=== PATIENT | male | born 1930 | race Caucasian/White ===

== ENCOUNTER → 2017-01-14 | Outpatient (CLI) | payer OTHER, BC ==
[~2017-01-14] MED LIST: ASPIRIN EC81 M1 PO; PRILOSEC40 MG PO; ROVIN-CF OF TA1 EACH PO; TYLENOL325 MG PO; XALATAN2.5 ML OPHTHALMIC; ZOCOR 20 MG TAB20 M1 PO
== END ==
LOC: MRI 13:46
DX: M47.896 Other spondylosis, lumbar region (principal); M51.36 Other intervertebral disc degeneration, lumbar region; M54.16 Radiculopathy, lumbar region

== ENCOUNTER → 2017-02-14 | Outpatient (CLI) | payer OTHER, BC ==
[~2017-02-14] VITALS: Ht 180.3 cm; Wt 70.3 kg
[~2017-02-14] MED LIST changes: +ALEVE220 MG PO; +ARNICA GEL; +LINZESS145 MCG PO; +NORCO 10-325 T1 EACH PO
--- NOTE | ~2017-02-14 | HPC ---
[facility] [place] [address] PAIN MANAGEMENT CONSULTATION Name: KELSEY ROYAL JR Room #: REG [facility].#: [id number] Admission: 02/14/17 Attend Phys: Bello Desir MD Discharge: Date of : 32 Report #: [id number] THIS REPORT FOR: //name// CC: Wade Desir DATE OF SERVICE: 02/14/2017 CHIEF COMPLAINT: Right leg pain. HISTORY OF PRESENT ILLNESS: I am seeing the patient who comes to the clinic today with a diagnosis of lumbar radiculopathy. He began experiencing pain in his leg with radiation through the lateral aspect as far as the calf and foot. He was treated conservatively with some exercise and pain medication and then an MRI was performed. The MRI demonstrated 2 levels of fairly significant pathology with correlation with his symptoms. There was lateral recess narrowing on the right at L3-L4 as well as bilateral neural foraminal narrowing on the right at L4-L5. In addition, asymmetrical bulging of the disk was noted at L2-L3; however, this was to the left, with the small possible extrusion. He was sent to us for a lumbar epidural steroid injection trial. His has been treated successfully in our clinic in the past. I am familiar with the patient from those appointments. MEDICATIONS: Omeprazole, Aleve, hydrocodone 10/325, Biotin, Linzess, aspirin, B12, simvastatin, Toprol and Arnicare gel. ALLERGIES: PENICILLIN. PAST MEDICAL HISTORY: Hypertension. PAST SURGICAL HISTORY: Appendectomy in 1960, cholecystectomy in 2006 and rotator cuff repair in 2002. Denies cardiac or pulmonary disease. REVIEW OF SYSTEMS: Completed by the patient, describes decreased appetite, fatigue, weakness, constipation, nocturia, numbness and tingling. SOCIAL HISTORY: . His is here, she is supportive. She has her own set of health issues. He has been retired for over 28 years. He denies the use of tobacco, drinks alcohol, a couple of drinks per evening. PHYSICAL EXAMINATION: GENERAL: This is a pleasant 86-year-old, alert and oriented, without signs of overmedication or anxiety or depression. MUSCULOSKELETAL: Moves easily from sitting to standing position, but walks with [facility] [address] [place] [address] PAIN MANAGEMENT CONSULTATION Name: KELSEY ROYAL Room #: [facility].#: [id number] Admission: 02/14/17 Attend Phys: Bello Desir MD Discharge: Date of : 32 Report #: [id number] a measured gait, slow and steady. He is able to turn. He does not appear to be a fall risk. CHEST: Clear. CARDIAC: Rhythm is regular, with a slow heart rate. ABDOMEN: Scaphoid. BACK: Mildly tender. EXTREMITIES: He has decreased range of motion in flexion and extension. Flexion reproduces more back and leg pain than extension does. Straight leg raising is positive on the right, reproducing an L4 distribution pain. IMPRESSION: Lumbar radiculopathy related to multilevel degenerative disk disease with symptomatic L4-L5 radiculopathy. RECOMMENDATIONS: Lumbar epidural steroid injection. I have chosen the most significant level to inject today to the right of midline and I have also tried to cover his many dermatomes as possible. Risks and benefits of the procedure was explained to the patient and he was anxious to proceed. PROCEDURE: Epidural steroid injection with fluoroscopic guidance. DESCRIPTION OF PROCEDURE: He was taken to the fluoroscopic suite and placed prone. Skin prepped with ChloraPrep. Skin anesthetized over the L3-L4 interspace and a 20-gauge Tuohy epidural needle advanced into the epidural space into the right of midline. A 1 mL of Omnipaque injected. Good spread of dye observed into the lateral recess on the right. It was then followed by 4 mL of 0.5% lidocaine mixed with 80 mg triamcinolone. He tolerated the procedure well and was taken to the recovery room for observation. I will see him back in 1 month. He has asked that his medication for pain can be prescribed through our clinic. He has been getting it monthly from Dr. Albarran's office and this is quite a drive for them from [place]. Our office is about 30 minutes closer and he also can be seen at the same time as his . I have agreed to do so under terms of an opioid agreement. This is notification to Dr. Albarran that we would be assuming the prescribing of his pain medication opioid hydrocodone 10/. We reviewed the risks and benefits of these medicines and side effects, particularly constipation, which seems to already be troubling him. He will initiate an opioid agreement with us today. By: [id number] Bello Desir MD /nt
[2017-02-14 12:46] VITALS: BP 160/58
== END | disposition home or self-care (01) ==
LOC: PAIN 06:54
DX: M51.36 Other intervertebral disc degeneration, lumbar region (principal); M54.16 Radiculopathy, lumbar region; I10 Essential (primary) hypertension; Z88.0 Allergy status to penicillin; Z90.49 Acquired absence of other specified parts of digestive tract; Z98.890 Other specified postprocedural states; Z79.82 Long term (current) use of aspirin; Z79.899 Other long term (current) drug therapy

== ENCOUNTER → 2017-03-14 | Outpatient (CLI) | payer OTHER, BC ==
--- NOTE | ~2017-03-14 | HPC ---
[facility] [place] [address] PAIN MANAGEMENT CONSULTATION Name: KELSEY ROYAL JR Room #: REG [facility].#: [id number] Admission: 03/14/17 Attend Phys: Bello Desir MD Discharge: Date of : 32 Report #: [id number] THIS REPORT FOR: //name// CC: Wade Desir DATE OF SERVICE: 03/14/2017 Followup visit for lumbar radiculopathy. The patient has had a good response with about 60-70% response from his first epidural injection. Pain score is down to 3-4. Still has some pain in his left hip and in his right hip and leg, but the more distal radicular symptoms are improved. He has been using hydrocodone as needed, but has reduced his reliance on that medication. He has fewer side effects off medication, so we will continue to try and limit his use of opioid medication with another injection today. PHYSICAL EXAMINATION: Blood pressure is 145/68, heart rate 75, respirations are 16 and his pain score is 3-4 ____ moves to standing position, walks with antalgic features. He has positive straight leg raising on the right. Internal and external rotation of the right hip is performed without significant pain, although there are some slight restrictions in lateral rotation. IMPRESSION: Lumbar spondylosis and spinal stenosis resulting in lumbar radiculopathy. PROCEDURE: Lumbar epidural steroid injection to the right of midline at L3-L4 under fluoroscopic guidance. PROCEDURE NOTE: He was taken to the fluoroscopic suite for treatment, placed prone, skin prepped with ChloraPrep. Skin was anesthetized over the L3-L4 interspace. A 20-gauge Tuohy epidural needle advanced in the epidural space with loss of resistance. There was no blood or CSF aspirated. 1 mL of Omnipaque injected. Spread of dye observed into the epidural space. It was followed by 3 mL of 0.5% lidocaine mixed with ____ 80 mg of triamcinolone. He tolerated the procedure well. He was observed for 45 minutes and discharged. Followup visit planned as needed. By: [id number] Bello Desir MD /nt
== END | disposition home or self-care (01) ==
LOC: PAIN 07:05
DX: M47.896 Other spondylosis, lumbar region (principal); M48.06 Spinal stenosis, lumbar region; Z79.891 Long term (current) use of opiate analgesic; Z88.0 Allergy status to penicillin; Z79.82 Long term (current) use of aspirin; Z79.899 Other long term (current) drug therapy; Z98.890 Other specified postprocedural states

== ENCOUNTER → 2017-08-08 | Outpatient (CLI) | payer OTHER, BC ==
[~2017-08-08] VITALS: Ht 180.3 cm; Wt 71.7 kg
[~2017-08-08] MED LIST changes: +HYDROCODON-ACE1 EAC5 PO; +LOPRESSOR25 PO; +PRILOSEC 20 MG20 MG PO; -PRILOSEC40 MG PO; +VITAMIN B-12500 MCG PO
--- NOTE | ~2017-08-08 | HPC ---
[facility] [address] [address] [place] [address] PAIN MANAGEMENT CONSULTATION Name: KELSEY ROYAL JR Room #: REG [facility] Brijesh.#: [id number] Admission: 08/08/17 Attend Phys: Bello Desir MD Discharge: Date of : 32 Report #: [id number] THIS REPORT FOR: //name// CC: Wade Desir DATE OF SERVICE: 08/08/2017 Followup visit for low back pain with radiculopathy and management of opioid medication for intractable pain. The patient returns to pain clinic today for evaluation. He was last seen on 05/10/2017. I have been providing with epidural steroid injections for relief over the course of the last 6 months. He had monthly injections from February through the first part of May. This did provide pain relief for him related to his L3-L4 spinal stenosis. He was also given prescription for hydrocodone. He is able to take up to 3 tablets a day, but has been spacing them out taking maybe just a tablet in the morning and a tablet in the evening. He has no side effects. Usually, pain is worse in the middle of the day. We talked to him today about going ahead and taking a third tablet. This would be 15 morphine milligram equivalents. He has no other side effects other than mild constipation. He is on an opioid written agreement. He understands his responsibilities. He understands safeguarding his medications. I will be his only prescriber. He will get all his medications from the same pharmacy. Constipation will be managed with stool softeners, laxatives and good hydration. He is not on a blood thinner. He is not currently hypertensive. All medications have been reviewed and reconciled. VITAL SIGNS: Today, blood pressure of 119/64, heart rate 62, respirations 16, O2 sat is 99%. Pain intensity is 3-4. He fell off the front porch when turning to look at a friend's car that had just pulled into the driveway. He had quite a bruise on ____, and there are no obvious fractures and he has recovered from it. He will use caution and a cane when he is ambulating. Hypertension, treated by his primary care physician. The patient has completed a functional assessment tool and risk assessment tool. PHYSICAL EXAMINATION: He is bright and alert. He shows no signs of dementia or anxiety. He moves from a sitting to standing position and ambulates without a cane. He has tenderness across his low back. He has positive straight leg [facility] [address] [place] [address] PAIN MANAGEMENT CONSULTATION Name: KELSEY ROYAL JR Room #: REG [facility]#: [id number] Admission: 08/08/17 Attend Phys: Bello Desir MD Discharge: Date of : 32 Report #: [id number] raising, greater on the right than the left. IMPRESSION: 1. Chronic low back pain with radiculopathy secondary to multilevel degenerative disk disease and particularly spinal stenosis evident at L3-L4. 2. Management of high risk medications under terms of written agreement. Followup visit planned in 3 months or sooner for an epidural injection. <ELECTRONICALLY SIGNED> By: Bello Desir MD 09/04/17 1640 [id number] Bello Desir MD /nt
[2017-08-08 14:25] VITALS: BP 119/64
== END ==
LOC: PAIN 06:54
DX: M48.061 Spinal stenosis, lumbar region without neurogenic claudication (principal); M51.36 Other intervertebral disc degeneration, lumbar region; M54.16 Radiculopathy, lumbar region; F11.90 Opioid use, unspecified, uncomplicated; Z79.899 Other long term (current) drug therapy

== ENCOUNTER → 2018-01-06 | Outpatient (CLI) | payer OTHER, BC ==
[~2018-01-06] VITALS: Ht 182.9 cm; Wt 72.5 kg
--- NOTE | ~2018-01-06 | HPC ---
[facility] [place] [address] PAIN MANAGEMENT CONSULTATION Name: KELSEY ROYAL JR Room #: REG [facility].#: [id number] Admission: 01/06/18 Attend Phys: Bello Desir MD Discharge: Date of : 32 Report #: [id number] THIS REPORT FOR: //name// CC: Wade Desir DATE OF SERVICE: 01/06/2018 SUBJECTIVE: Followup visit for chronic low back pain with radiculopathy. This is a medication followup visit for the patient who I am seeing periodically for medication. He is carefully using hydrocodone to help with chronic intractable pain and is under a written opioid agreement. He was last seen in the pain clinic in August. He describes his pain intensity still is about a 4. Pain is mostly in his low back with a bit of radiating pain into the legs, but it does not go as far as calves. He has L3-L4 spinal stenosis. His current medication is hydrocodone 5/325 three tablets daily. He has mild constipation, but otherwise tolerates the medication well and is grateful for the relief that it provides. He understands the importance of safeguarding medication and is following an opioid written agreement. PQRS review shows in addition to his opioid agreement, he is not on a blood thinner. He is not currently treated for hypertension. He is lean and his BMI is in the 20s. He does not smoke. All medications were reviewed and reconciled from the electronic medical record. PHYSICAL EXAMINATION: VITAL SIGNS: Blood pressure is 126/68, heart rate is 69, respirations are 16. MUSCULOSKELETAL: He is able to easily move from a sitting to standing position. He has pain and tenderness with forward flexion and extension. Mild positive straight leg raising bilaterally, but it is worse on the right. IMPRESSION: Chronic low back pain with spondylosis and radiculopathy. Multilevel degenerative disk disease with spinal stenosis at L3-L4. Management of high risk medications under terms of written opioid agreement. [address] [address] PAIN MANAGEMENT CONSULTATION Name: KELSEY ROYAL Room #: REG [facility].#: [id number] Admission: 01/06/18 Attend Phys: Bello Desir MD Discharge: Date of : 32 Report #: [id number] I have renewed his hydrocodone 5/325 with important instructions on safeguarding medication. We will plan to see him back in the pain clinic in 3 months. By: 1311 0028 Bello Desir MD /nt
[2018-01-06 12:53] VITALS: BP 125/61
== END ==
LOC: PAIN 06:46
DX: M47.26 Other spondylosis with radiculopathy, lumbar region (principal); M51.16 Intervertebral disc disorders with radiculopathy, lumbar region; M48.061 Spinal stenosis, lumbar region without neurogenic claudication; G89.4 Chronic pain syndrome

== ENCOUNTER → 2018-04-16 | Outpatient (CLI) | payer OTHER, BC ==
[~2018-04-16] VITALS: Ht 182.9 cm; Wt 73.7 kg
--- NOTE | ~2018-04-16 | HPC ---
[facility] [place] [address] [place] [address] PAIN MANAGEMENT CONSULTATION Name: KELSEY ROYAL JR Room #: REG [facility].#: [id number] Admission: 04/16/18 Attend Phys: Bello Desir MD Discharge: Date of : 32 Report #: [id number] THIS REPORT FOR: //name// CC: Wade Desir DATE OF SERVICE: 04/16/2018 Followup visit for chronic low back pain and spinal stenosis. The patient returns to Pain Clinic today to discuss further options for management of his chronic pain. He has been using hydrocodone with some reasonable effectiveness, but still has pain at a level of 6-8/10. He is grateful for the benefits of the medication provides him and he would be probably bedfast if was not 4. With the medication, he is better. He denies any falls and is not considered a fall risk. He has kept himself slender with a BMI of 22. He is on no blood thinners, but is under treatment for hypertension and I provided his medications under terms of an opioid agreement. An opioid risk tool has shown that he is at low risk for addiction at the age of 87. He has pain across his low back and has radiating pain that follows an L3-L4 distribution. There is evidence of spinal stenosis. IMPRESSION: 1. Chronic low back pain with radiculopathy secondary to multilevel degenerative disease. 2. Spinal stenosis evident at L3-L4. PROCEDURE: Epidural steroid injection under fluoroscopic guidance. PROCEDURE: He was taken to the fluoroscopic suite, placed prone. Skin prepped with ChloraPrep. Skin anesthetized over L3-L4. A 20-gauge Tuohy epidural needle advanced in the epidural space with loss of resistance technique to the right of midline. No blood or CSF was aspirated. 1 mL of Isovue was injected. Good spread of dye observed in the epidural space followed by 3 mL of 0.5% lidocaine mixed with 80 mg of triamcinolone. He tolerated the procedure well and was observed for 45 minutes and discharged. Follow up as needed. By: [id number] Bello Desir MD /nt
[2018-04-16 12:35] VITALS: BP 154/59
== END | disposition home or self-care (01) ==
LOC: PAIN 06:38
DX: M51.16 Intervertebral disc disorders with radiculopathy, lumbar region (principal); M48.061 Spinal stenosis, lumbar region without neurogenic claudication; I10 Essential (primary) hypertension; G89.29 Other chronic pain; Z88.0 Allergy status to penicillin; Z79.891 Long term (current) use of opiate analgesic; Z79.82 Long term (current) use of aspirin; Z79.899 Other long term (current) drug therapy

== ENCOUNTER → 2018-08-28 | Outpatient (CLI) | payer OTHER, BC ==
[~2018-08-28] VITALS: Ht 182.9 cm; Wt 75.8 kg
[2018-08-28 10:37] VITALS: BP 166/81
--- NOTE | 2018-08-28 10:53 | NUR ---
Pain Clinic Assessment: 1. History of Osteoarthritis: History of Rheumatoid Arthritis: 2. Height: 6 ft. 0 in. 182.9 cm. Weight: 167.2 lb. oz. 75.841 kg. Patient's BMI: 22.7 3. Vital Signs: BP: 166/81 Pulse: 55 Resp: 14 Temp: 02 Sat: 99 ECG Mon: 4. Pain Intensity: 2-3 5. Fall Risk: Dizziness: N Needs help standing or walking: N Fallen in the last 3 months: N Fall risk comments: 6. Patient on Blood Thinner: None 7. History of Hypertension: Y 8. Opioid Therapy greater than 6 weeks: Y Opiate Contract Signed: 05/10/17 9. Risk Assessment Tool Provided: Opioid Risk Tool 10. Functional Assessment Tool: 9 11. Recreational Drug Use: Never Drug Type: Tobacco Use: Never Smoker Tobacco Type: Amount or Packs/day: How Many Years: Alcohol Use: Yes Frequency: Daily Quant:
--- NOTE | 2018-08-29 12:33 | HPC ---
[facility] [address] [place] [address] PAIN MANAGEMENT CONSULTATION Name: KELSEY ROYAL JR Room #: REG [facility] Thompson#: [id number] Admission: 08/28/18 ������������������ Attend Phys: Johanna Jiang Discharge: ������������������ Date of : 32 Report #: [id number] THIS REPORT FOR: //name// CC: Johanna Albarran DATE OF SERVICE: 08/28/2018 CHIEF COMPLAINT: Chronic low back pain and spinal stenosis. HISTORY OF PRESENT ILLNESS: The patient returns to the pain clinic today for refill of his pain medication. He tells me that he is doing quite well with his current regimen. He tells me the injection that he had in April gave him at least 50% relief for longer than 2 weeks. He tells me he no longer has any leg pain, just complaining of some right hip and low back pain. His pain score is 2/10 today; worse with walking and standing; better with lying down and his medication and sitting. He denies any constipation or daytime sleepiness. He tells me he takes an average of 2 pain pills a day, some days he requires 3 when he is more active. CURRENT ALLERGIES: No known drug allergies. MEDICATIONS: Hydrocodone 10/325 p.r.n., vitamin B12 daily, Lopressor 25 mg daily, Aleve daily, Linzess 145 mcg daily, Xalatan drops at bedtime, omeprazole 20 mg daily, aspirin 81 mg daily and Zocor 20 mg daily. PQRS: 1. 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 Denies rheumatoid arthritis. 2. Height is 6 feet, weight is 167. BMI is 22. 3. Vital signs: Blood pressure 166/81, pulse is 55, respirations 14, oxygen sat 99, pain score 2/10. 4. Fall risk: Denies dizziness. Does not need help walking or standing. Has not fallen in the last 3 months. The patient is not on a blood thinner, though he does have hypertension. 5. Opioid therapy is greater than 6 weeks, therefore, an opioid signed contract is on the chart. 6. His risk assessment tool is low. His functional assessment is 9/10 7. Recreational drug use, he denies. He is not a smoker and occasionally drinks alcohol. 8. We checked the prescription monitoring system. The patient is filling appropriately from Dr. Bello Desir. He tells me that he safeguards his medications. We will check a drug screen on his next visit, there is not one within the past year on his chart. ASSESSMENT: 1. Chronic low back [place] [address] PAIN MANAGEMENT CONSULTATION Name: KELSEY ROYAL Room #: REG [facility]#: [id number] Admission: 08/28/18 ������������������ Attend Phys: Johanna Jiang Discharge: ������������������ Date of : 32 Report #: [id number] 2. Spinal stenosis. We reviewed the fact that opiate medications are being used to provide analgesia adequate to support activities of daily living, not attempting to achieve a specific pain score on the 0-10 Visual Analog Scale. The current opiate medications are providing sufficient analgesia to allow the patient to participate in activities of daily living. The patient is not exhibiting any aberrant behavior suggestive of drug diversion. The patient is not having any adverse reactions to medications. The patient is not suffering from daytime somnolence or mental acuity changes. The patient is managing opiate-induced constipation with appropriate [id number] agents and dietary considerations. The patient was counseled on concern for caution with operating a motor vehicle while using opiate medications. A physical exam was performed and the patient's functional status was evaluated. All patients with back pain were advised against the bed rest greater than 4 days and were advised to return to normal activities. Pain score assessment was noted and the treatment plan was reviewed with the patient. All current medications, both prescribed and OTC were reviewed and reconciled on the electronic medical record. Tobacco screening was accomplished and smoking cessation was advised when indicated. BMI was noted and diet/exercise modification was recommended for all patients following outside normal parameters. I reviewed with the patient today their responsibilities to safeguard prescription medications, reviewed their responsibility to utilize medications only as prescribed by the physician. They are to seek and receive pain medications only from 1 physician group ( [facility]). They are to use 1 pharmacy and keep the clinic informed if they change pharmacies. Their responsibilities include making followup visits in a timely fashion and to avoid abrupt discontinuation of medication usage. Their responsibilities further include bringing their medications (bottles from the pharmacy with residual pills) to the visit for possible confirmation of pill counts and the patient understands it is their responsibility to submit to random drug screens to ensure both that the medications prescribed are present, and that no other controlled substances are present. All prescriptions provided today were generated electronically. PLAN: 1. We discussed treatment options with the patient today. He tells me he is doing well with his current pain regimen and periodic epidurals. He would like a refill of his meds today. Dr. Desir did stop in and see the patient and we refilled hydrocodone 10/325 #90 for today, 4-week and 8-week. 2. The patient will be seen in followup in 3 months' time[address] [address] PAIN MANAGEMENT CONSULTATION Name: KELSEY ROYAL JR Room #: REG [facility] Donna#: [id number] Admission: 08/28/18 ������������������ Attend Phys: Johanna Jiang Discharge: ������������������ Date of : 32 Report #: [id number] The patient seen in collaboration with and Dr. Desir present at the visit today. ��������������������������������������������� <ELECTRONICALLY SIGNED> ���������������������������������������� By: Johanna Jiang ��������������������������������������������� 08/29/18 1233 [id number] Johanna Jiang /nt
== END ==
LOC: PAIN 06:48
DX: M47.16 Other spondylosis with myelopathy, lumbar region (principal); M48.062 Spinal stenosis, lumbar region with neurogenic claudication; Z79.899 Other long term (current) drug therapy; Z79.891 Long term (current) use of opiate analgesic

== ENCOUNTER → 2019-01-22 | Outpatient (CLI) | payer OTHER, BC ==
[~2019-01-22] VITALS: Ht 182.9 cm; Wt 73.6 kg
[~2019-01-22] MED LIST changes: +FLOMAX0.4 MG PO
[2019-01-22 08:53] VITALS: BP 136/51
--- NOTE | 2019-01-22 09:07 | NUR ---
Pain Clinic Assessment: 1. History of Osteoarthritis: HIP History of Rheumatoid Arthritis: Not Applicable 2. Height: 6 ft. 0 in. 182.9 cm. Weight: 162.2 lb. oz. 73.573 kg. Patient's BMI: 22.0 3. Vital Signs: BP: 136/51 Pulse: 55 Resp: 16 Temp: 02 Sat: 98 ECG Mon: 4. Pain Intensity: 3-4 5. Fall Risk: Dizziness: N Needs help standing or walking: N Fallen in the last 3 months: N Fall risk comments: 6. Patient on Blood Thinner: None 7. History of Hypertension: Y 8. Opioid Therapy greater than 6 weeks: Y Opiate Contract Signed: 05/10/17 9. Risk Assessment Tool Provided: LOW RISK 0/3 10. Functional Assessment Tool: 11. Recreational Drug Use: Never Drug Type: Tobacco Use: Never Smoker Tobacco Type: Amount or Packs/day: How Many Years: Alcohol Use: Yes Frequency: Daily Quant: 2
--- NOTE | 2019-01-23 07:39 | HPC ---
[facility] [place] [address] PAIN MANAGEMENT CONSULTATION Name: KELSEY ROYAL JR [id number] Admission: 01/22/19 ������������������ Attend Phys: Johanna Jiang Discharge: ������������������ Date of : 32 Report #: [id number] THIS REPORT FOR: //name// CC: Johanna Albarran DATE OF SERVICE: 01/22/2019 CHIEF COMPLAINT: Chronic low back pain with spinal stenosis. HISTORY OF PRESENT ILLNESS: This is a very pleasant 88-year-old gentleman, who returns to the pain clinic today for refill of his medications that he uses to help treat his ongoing low back pain. Today, he tells me it is mostly in his right hip and across his lumbar spine at his waist. His pain score is at 3-4 today, but it can be elevated when he increases his yard work. He tells me that mornings are worse, but he had taken his pain pill before he arrived today, so he is feeling quite good today. Sitting and lying down also helps relieve some of his pain. He tells me that his constipation is managed with Linzess and prune juice though he may try MiraLax in the future since it is helpful for his . The patient would like a refill of his hydrocodone today. ALLERGIES: PENICILLIN. CURRENT LIST OF MEDICATIONS: Flomax 0.4 mg daily, hydrocodone 10/325 two to three times a day, vitamin B12, Lopressor, Aleve, Linzess, Prilosec, aspirin, and Zocor. THE PATIENT'S PQRS: 1. 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 Denies any rheumatoid arthritis. 2. Height is 6 feet, weight is 162, BMI is 22. 3. Vital signs; blood pressure 136/51, pulse is 55, respirations 16, and oxygen sat is 98. 4. Pain score is 3-4. 5. Denies dizziness, does not need help with walking or standing, has not fallen in the last 3 months. 6. The patient is not on any blood thinners. He does take medicine for hypertension. 7. Opioid therapy is greater than 6 weeks; therefore, an opioid signed contract is on the chart. His risk assessment tool is low. Functional assessment is 0. 8. Recreational drug use, he denies. He is not a smoker and occasionally drinks alcohol. We did check the prescription monitoring system, the patient is filling appropriately from medications from Dr. Bello Desir and we will check a random drug screen on his next visit. He tells me he does safeguard his [address] [address] PAIN MANAGEMENT CONSULTATION Name: KELSEY ROYAL Room #: REG [facility] Donna#: [id number] Admission: 01/22/19 ������������������ Attend Phys: Johanna Jiang Discharge: ������������������ Date of : 32 Report #: [id number] medications. PHYSICAL EXAMINATION: GENERAL: This is a well-developed, well-nourished 88-year-old gentleman, who appears his stated age, quite pleasant gentleman. HEENT: Normocephalic, atraumatic. Extraocular eye muscles are intact. Mucous membranes are moist. MUSCULOSKELETAL: He moves easily from the sitting to standing position. He has pain with tenderness with forward flexion and extension in his lumbar spine. He has mild positive straight leg raising bilateral, worse on the right than the left. He walks with a slight antalgic gait. IMPRESSION: 1. Chronic low back pain with radiculopathy. 2. Spinal stenosis at the L3-L4 level. 3. Multilevel degenerative disk disease. 4. Management of high risk medications under terms of written opioid agreement. We reviewed the fact that opiate medications are being used to provide analgesia adequate to support activities of daily living, not attempting to achieve a specific pain score on the 0-10 Visual Analog Scale. The current opiate medications are providing sufficient analgesia to allow the patient to participate in activities of daily living. The patient is not exhibiting any aberrant behavior suggestive of drug diversion. The patient is not having any adverse reactions to medications. The patient is not suffering from daytime somnolence or mental acuity changes. The patient is managing opiate-induced constipation with appropriate oafl-xey-llimioi agents and dietary considerations. The patient was counseled on concern for caution with operating a motor vehicle while using opiate medications. A physical exam was performed and the patient's functional status was evaluated. All patients with back pain were advised against the bed rest greater than 4 days and were advised to return to normal activities. Pain score assessment was noted and the treatment plan was reviewed with the patient. All current medications, both prescribed and OTC were reviewed and reconciled on the electronic medical record. Tobacco screening was accomplished and smoking cessation was advised when indicated. BMI was noted and diet/exercise modification was recommended for all patients following outside normal parameters. I reviewed with the patient today their responsibilities to safeguard prescription medications, reviewed their responsibility to utilize medications only as prescribed by the physician. They are to seek and receive pain medications only from 1 physician group ([facility]). They are to use 1 pharmacy and keep the clinic informed if they change pharmacies. Their responsibilities include making followup visits in a timely fashion and to avoid [address] [address] PAIN MANAGEMENT CONSULTATION Name: KELSEY ROYAL JR Room #: REG [facility]#: [id number] Admission: 01/22/19 ������������������ Attend Phys: Johanna Jiang Discharge: ������������������ Date of : 32 Report #: [id number] abrupt discontinuation of medication usage. Their responsibilities further include bringing their medications (bottles from the pharmacy with residual pills) to the visit for possible confirmation of pill counts and the patient understands it is their responsibility to submit to random drug screens to ensure both that the medications prescribed are present, and that no other controlled substances are present. All prescriptions provided today were generated electronically. PLAN: 1. We discussed treatment options with the patient today. The patient tells me he is doing quite well. Most days, he does only require 2 pain pills a day and takes a third when he is more active. The patient had been able to go longer on his prescriptions than 30 days. I instructed the patient to keep track of how many extra pills he has at the end of each month so at his next visit if we are able to decrease him to 75 pills per 30 days we will do that explaining to him that we like able to fill less medicine if he is not taking the full 90 pills, the patient verbalizes understanding. Scripts given to him for hydrocodone 10/325, #90 for today for an 8-week release. 2. We did discuss constipation. The patient tells me he is well managed with his Linzess, but may try MiraLax which his has been using and that would get rid of one prescription medication for him. 3. The patient is seen by Dr. Desir, who collaborated care today. ��������������������������������������������� <ELECTRONICALLY SIGNED> ���������������������������������������� By: Johanna Jiang ��������������������������������������������� 01/23/19 0739 1101 1128 Johanna Jiang /nt
== END ==
LOC: PAIN 08:33
DX: M51.16 Intervertebral disc disorders with radiculopathy, lumbar region (principal); M48.061 Spinal stenosis, lumbar region without neurogenic claudication; Z79.891 Long term (current) use of opiate analgesic

== ENCOUNTER → 2019-06-01 | Outpatient (CLI) | payer OTHER, BC ==
[~2019-06-01] VITALS: Ht 182.9 cm; Wt 75.8 kg
[2019-06-01 13:37] VITALS: BP 129/58
--- NOTE | 2019-06-01 13:49 | NUR ---
Pain Clinic Assessment: 1. History of Osteoarthritis: HIPS History of Rheumatoid Arthritis: DENIES 2. Height: 6 ft. 0 in. 182.9 cm. Weight: 167.0 lb. oz. 75.751 kg. Patient's BMI: 22.6 3. Vital Signs: BP: 129/58 Pulse: 45 Resp: 16 Temp: 02 Sat: 98 ECG Mon: 4. Pain Intensity: 4 5. Fall Risk: Dizziness: N Needs help standing or walking: N Fallen in the last 3 months: N Fall risk comments: 6. Patient on Blood Thinner: None 7. History of Hypertension: Y 8. Opioid Therapy greater than 6 weeks: Y Opiate Contract Signed: 05/10/17 9. Risk Assessment Tool Provided: LOW RISK 0/3 10. Functional Assessment Tool: 0 11. Recreational Drug Use: Never Drug Type: Tobacco Use: Never Smoker Tobacco Type: Amount or Packs/day: How Many Years: Alcohol Use: Yes Frequency: Daily Quant: KAYE
--- NOTE | 2019-06-02 08:59 | HPC ---
[facility] [address] [place] [address] PAIN MANAGEMENT CONSULTATION Name: KELSEY ROYAL JR Room #: REG [facility] Donna#: [id number] Admission: 06/01/19 Attend Phys: Johanna Jiang Discharge: Date of : 32 Report #: [id number] THIS REPORT FOR: //name// CC: Johanna Albarran DATE OF SERVICE: 06/01/2019 CHIEF COMPLAINT: Chronic low back pain with spinal stenosis. HISTORY OF PRESENT ILLNESS: This is a very pleasant 88-year-old gentleman who returned to the Pain Clinic today for a refill of his hydrocodone. He uses this very sparingly, taking 1 to 2 tablets a day. He feels that it is very beneficial in controlling most of his low back pain and bilateral leg pain. He is rating his pain score 4/10 today. It is an achy feeling that is worse when he is walking and standing. He reports that yesterday, he did a lot of yard work and that did increase his pain. He said luckily, some nice neighbors did help him with his entire backyard, cleaning all of his leaves since normally he does this with his and she is unable to help him this year. He said that was so nice; that he greatly appreciated their help because it would have taken him days to get it accomplished. He reports that sitting and resting also is beneficial in controlling his pain, as well as taking his medication. He denies any problems with daytime sleepiness or constipation. The patient's heart rate is slightly lower today. He reports that he has decreased his medication metoprolol once already, but he will contact his primary care doctor to see if he needs to lower this any further. He is not having any problems with dizziness or has not fallen in any way, but he is very careful as well. ALLERGIES: PENICILLIN. CURRENT LIST OF MEDICATIONS: Flomax 0.4 mg, hydrocodone 10/325 p.r.n., vitamin B, metoprolol 25 mg daily, naproxen as needed, Linzess daily, omeprazole 20 mg daily, aspirin 81 mg daily, Zocor 20 mg daily. PQRS: 1. He has osteoarthritis in his hips, osteoarthritis in his spine as well. He denies any rheumatoid arthritis. 2. Height is 6 feet, weight is 167, BMI is 22. 3. Vital signs; blood pressure 129/58, pulse is 45, respirations 16, oxygen sat is 98. 4. Pain score is 4/10. 5. Denies dizziness, does not need help walking or standing, has not fallen in the last 3 months. 6. The patient is not on any blood thinners, but does take medicine for [address] [address] PAIN MANAGEMENT CONSULTATION Name: KELSEY ROYAL Room #: REG [facility] Thompson#: [id number] Admission: 06/01/19 Attend Phys: Johanna Jiang Discharge: Date of : 32 Report #: [id number] hypertension. 7. Opioid therapy is greater than 6 weeks; therefore, an opioid signed contract is on the chart. Risk assessment tool is low. Functional assessment is 0. 8. Recreational drug use, he denies. He is not a smoker and does occasionally drink alcohol. According to the prescription monitoring system, the patient is filling appropriately, in greater than a month between fills. He does safeguard his meds at all times. We will check a random drug screen on this patient today. PHYSICAL EXAMINATION: GENERAL: This is a well-developed, well-nourished 88-year-old gentleman who appears his stated age or slightly younger. He is alert and orientated. HEENT: Normocephalic, atraumatic. Extraocular eye muscles are intact. Mucous membranes are moist. MUSCULOSKELETAL: He has tenderness with forward flexion and extension of his lumbar spine, along the paraspinal musculature. He has a slightly antalgic gait. He moves easily from sitting to standing position. His lower extremity strength judged to be 5/5 in all major muscle groups. IMPRESSION: 1. Chronic low back pain with radiculopathy. 2. Spinal stenosis at the L3-L4 level. 3. Multilevel degenerative disk disease. 4. Management of high risk medications under terms of written opioid agreement. We reviewed the fact that opiate medications are being used to provide analgesia adequate to support activities of daily living, not attempting to achieve a specific pain score on the 0-10 Visual Analog Scale. The current opiate medications are providing sufficient analgesia to allow the patient to participate in activities of daily living. The patient is not exhibiting any aberrant behavior suggestive of drug diversion. The patient is not having any adverse reactions to medications. The patient is not suffering from daytime somnolence or mental acuity changes. The patient is managing opiate-induced constipation with appropriate npnv-yim-mmfbdah agents and dietary considerations. The patient was counseled on concern for caution with operating a motor vehicle while using opiate medications. PLAN: We discussed treatment options with the patient today. The patient finds his medications very beneficial. We will refill the hydrocodone 10/25, #90, for today,4 week an 8-week release. This does place him at 30 morphine mEq a day if he does take a full 3, well under the CDC guidelines. The patient is seen in collaboration with Dr. Bello Desir today. [address] [address] PAIN MANAGEMENT CONSULTATION Name: KELSYE ROYAL JR Room #: [facility] CARISSA Thompson#: [id number] Admission: 06/01/19 Attend Phys: Johanna Jiang Discharge: Date of : 32 Report #: [id number] The patient will return in followup in 3 months or as needed. <ELECTRONICALLY SIGNED> By: Johanna Jiang 06/02/19 0859 1510 2142 Johanna Jiang /nt
== END ==
LOC: PAIN 06:51
DX: M48.061 Spinal stenosis, lumbar region without neurogenic claudication (principal); M51.16 Intervertebral disc disorders with radiculopathy, lumbar region; Z79.891 Long term (current) use of opiate analgesic

== ENCOUNTER 2019-07-23 12:27 | Inpatient (IN) | payer OTHER, BC ==
[~2019-07-23] VITALS: Ht 182.9 cm; Wt 69.9 kg
[2019-07-23 12:28] VITALS: BP 176/71
[2019-07-23 13:20] LABS: MCV 90.5 fL (80.0-100.0)
[2019-07-23 13:21] LABS: ABSOLUTE NEUTROPHILS 7.3 thou/uL (1.4-8.2); BASOPHILS 1.4 % (0.0-2.0); HEMATOCRIT 41.3 % (42.0-52.0); HEMOGLOBIN 13.5 gm/dL (14.0-18.0); LYMPHOCYTES 7.9 % (24.0-44.0); MCH 29.6 pg (26.0-34.0); MCHC 32.7 g/dL (28.0-37.0); MONOCYTES 7.4 % (1.0-8.0); POLYS 79.3 % (36.0-66.0); RBC 4.57 mil/uL (4.50-6.00); RDW 15.8 % (10.5-14.5); WBC 9.2 thou/uL (4.0-11.0)
[2019-07-23 13:32] LABS: APTT 27.8 Seconds (24.5-32.8); PROTIME 10.3 Seconds (9.3-11.4)
[2019-07-23 13:39] LABS: PLATELET ESTIMATE MARKEDLY INCREASED
[2019-07-23 13:41] LABS: PLATELET COUNT 1067 thou/uL (150-400)
[2019-07-23 13:42] LABS: ANION GAP 9 mmol/L (7-16); BUN 28 mg/dL (7-18); CALCIUM 9.3 mg/dL (8.5-10.1); CHLORIDE 103 mmol/L (98-107); CO2 24 mmol/L (21-32); CREATININE 1.3 mg/dL (0.7-1.3); GLUCOSE 106 mg/dL (74-106); POTASSIUM 4.8 mmol/L (3.5-5.1); SODIUM 136 mmol/L (136-145)
[2019-07-23 13:47] LABS: ALBUMIN 4.1 g/dL (3.4-5.0); SGOT 25 U/L (15-37); SGPT 25 U/L (30-65); TOTAL BILIRUBIN 0.5 mg/dL (<0.1-1.0); TOTAL PROTEIN 7.2 g/dL (6.4-8.2); TROPONIN-I <0.06 ng/mL (<0.06)
--- NOTE | 2019-07-23 15:34 | NUR ---
COPIER OPERATOR TO SEE PATIENT. PT AND FAMILY VERBALIZE UNDERSTANDING OF ADMITTING DX AND NEED FOR FURTHER TESTING. THIS RN WILL CONTINUE TO MONITOR AND FOLLOW THIS PATIENT.
[2019-07-23 15:58] LABS: CHOLESTEROL 157 mg/dL (<200); HDL CHOLESTEROL 75 mg/dL (>40); LDL CHOLESTEROL 74 mg/dL (<100); TC:HDL 2.1 Ratio (Not establshd); TRIGLYCERIDE 41 mg/dL (<150); VLDL 8 mg/dL (<40)
[2019-07-23 16:52] VITALS: BP 142/64
[2019-07-23 17:15] VITALS: BP 134/66
--- NOTE | 2019-07-23 17:28 | EKG ---
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 : 1930 Requested By: Girish Jacob Order Number: [id number] MD: Quoc Son Measurements Intervals [place] Rate: 63 P: ME: QRS: -15 QRSD: 117 T: -81 QT: 442 QTc: 453 Interpretive Statements Afib/flut and V-paced complexes No further rhythm analysis attempted due to paced rhythm Incomplete right bundle branch block Nonspecific T abnormalities, lateral leads Compared to ECG 07/01/2014 21:09:21 Electronically Signed On 07-23-2019 17:27:37 NANOFABRICATION SPECIALIST by Quoc Son [email or web address] <ELECTRONICALLY SIGNED> By: Quoc Son MD 07/23/19 1727 16 16 Quoc Son MD /EPI
[2019-07-23 18:21] VITALS: BP 170/107
--- NOTE | 2019-07-23 19:44 | NUR ---
PATIENT ADMIT TO UNIT AT 1750. A/O X4. NIH X0. ANBULATED IN ROOM. NOTED HR 130 TO 150 AFIB/SA. AT 1800. PATIENT CONVERTED TO NSR HR 75 BY HIM SELF AT 0711 WITHOUT TREATMENT. WILL KEEP MONITOR.
[2019-07-23 20:20] VITALS: BP 126/66
[2019-07-24 00:08] VITALS: BP 146/78
[2019-07-24 04:28] LABS: CALCIUM 8.9 mg/dL (8.5-10.1); CREATININE 1.2 mg/dL (0.7-1.3); POTASSIUM 4.2 mmol/L (3.5-5.1)
[2019-07-24 04:38] LABS: HEMATOCRIT 37.9 % (42.0-52.0); HEMOGLOBIN 12.6 gm/dL (14.0-18.0); MCH 30.2 pg (26.0-34.0); MCHC 33.4 g/dL (28.0-37.0); MCV 90.4 fL (80.0-100.0); RBC 4.19 mil/uL (4.50-6.00); RDW 15.7 % (10.5-14.5); WBC 7.6 thou/uL (4.0-11.0)
[2019-07-24 04:55] VITALS: BP 147/63
--- NOTE | 2019-07-24 05:39 | NUR ---
Received pt. in a fib RVR at shift change while up to bathroom. Once back to bed he is back in normal sinus rhythm. He is asymptomatic and stated he didn't feel that his heart is beating fast. Denies being short of breath and no chest pain. While sound asleep HR is in the mid to upper 40's and low 60's. No change in neuro status. Up ad ulisses with steady gait. Left upper extremity weakness has resolved. Will continue to monitor.
[2019-07-24 08:07] VITALS: BP 143/65
--- NOTE | 2019-07-24 08:58 | NUR ---
ASSESSMENT-PT LIVES AT HOME WITH HIS WHO HAS HER OWN MEDICAL PROBLEMD AND CAN'T BE LEFT ALONE. PT'S DTR IS CURRENTLY ON FMLA AND ASSISTING HER MOTHER. THEY HAVE 2 SONS IN THE AREA WELL. CHILDREN HAVE BEEN TAKING OVER MEALS FOR THEM. PT WALKS ON HIS OWN IN THE HOME AND USES A CANE OUTSIDE. PT HAS NOT HAD ANY HH SERVICES AND NO REHAB. PT DRIVES. THEY HAVE A SHOWER STOOL, GRAB BARS AND HANDHELD SHOWER THAT USES. LAUNDRY LOCATED DOWN 6 STEPS, DTR HELPING WITH THIS, USUALLY DOES THIS. FOLLOWING TO ASSIST WITH DC PLANNING. TOSHIA TORRES AT BEDSIDE FOR ASSESSMENT.
--- NOTE | 2019-07-24 11:32 | 2DMMODE ---
[facility] [address] [employer] [place] [address] 2 D/M-MODE ECHOCARDIOGRAM Name: KELSEY ROYAL Room #: 364-P ADM IN M.R.#: [id number] Admission: 07/23/19 Attend Phys: Wade Quezada MD Discharge: Date of : 32 Report #: [id number] THIS REPORT FOR: //name// APPROVED REPORT Study performed: 07/24/2019 08:53:21 EXAM: Comprehensive 2D, Doppler, and color-flow Echocardiogram Patient Location: Bedside Room #: 364 Status: routine BSA: 1.91 HR: 99 bpm BP: 143/65 mmHg Rhythm: Atrial Fibrillation Other Information Study Quality: Adequate Indications CVA/TIA Hypertension/HDD Echo Enhancing Agent Indication: Rule out Shunt Agent(s) / Amount(s) Used: Agitated Saline 7 cc 2D Dimensions IVC: 26.00 mm Volumes Left Atrial Volume (Systole) Single Plane 4CH: 49.60 mL Single Plane 2CH: 45.95 mL LA ESV Index: 29.00 mL/m2 Aortic Valve AoV Peak Ghulam.: 1.01 m/s AO Peak Gr.: 4.08 mmHg LVOT Max P.12 mmHg LVOT Max V: 0.88 m/s Pulmonary Valve PV Peak Ghulam.: 0.93 m/s PV Peak Gr.: 3.44 mmHg Left Ventricle The left ventricle is normal size. There is normal LV segmental wall [facility] [address] [place] [address] 2 D/M-MODE ECHOCARDIOGRAM Name: KELSEY ROYAL Room #: 364-P ADM IN M.R.#: [id number] Admission: 07/23/19 Attend Phys: Wade Quezada MD Discharge: Date of : 32 Report #: [id number] motion. There is normal left ventricular wall thickness. The left ventricular systolic function is normal. The left ventricular ejection fraction is within the normal range. LVEF is >55%. This study is not technically sufficient to allow evaluation of the LV diastolic function due to atrial fibrillation. Right Ventricle The right ventricle is normal size. The right ventricular systolic function is normal. Atria The left atrium size is normal. The right atrium size is normal. Aortic Valve The aortic valve is normal in structure. No aortic regurgitation is present. There is no aortic valvular stenosis. Mitral Valve The mitral valve is normal in structure. Trace mitral regurgitation. No evidence of mitral valve stenosis. Tricuspid Valve The tricuspid valve is normal in structure. There is no tricuspid valve regurgitation noted. Pulmonic Valve The pulmonary valve is normal in structure. There is no pulmonic valvular regurgitation. Great Vessels The aortic root is normal in size. IVC is dilated and collapses <50% with inspiration. Pericardium There is no pericardial effusion. <Conclusion> The left ventricle is normal size. LVEF is >55%. This study is not technically sufficient to allow evaluation of the LV diastolic function due to atrial fibrillation. The right ventricle is normal size. The left atrium size is normal. The aortic valve is normal in structure. Trace mitral regurgitation. [facility] [address] [place] [address] 2 D/M-MODE ECHOCARDIOGRAM Name: KELSEY ROYAL Room #: 364-P ADM IN M.R.#: [id number] Admission: 07/23/19 Attend Phys: Wade Quezada MD Discharge: Date of : 32 Report #: [id number] There is no tricuspid valve regurgitation noted. The aortic root is normal in size. There is no pericardial effusion. <ELECTRONICALLY SIGNED> By: Ricardo Bailey MD, FACC 07/24/19 1131 30 30 Ricardo Bailey MD, FACC /INF
[2019-07-24 12:06] VITALS: BP 130/57
--- NOTE | 2019-07-24 13:46 | EKG ---
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: Ronald KENDALL : 1930 Requested By: Ricardo Bailey Order Number: [id number] MD: Quoc Son Measurements Intervals [place] Rate: 75 P: 55 ME: 189 QRS: 60 QRSD: 98 T: 69 QT: 388 QTc: 434 Interpretive Statements Sinus rhythm Atrial premature complex Compared to ECG 07/23/2019 12:17:09 Atrial premature complex(es) now present Atrial fibrillation no longer present Ventricular-paced complex(es) or rhythm no longer present Incomplete right bundle-branch block no longer present T-wave abnormality no longer present Electronically Signed On 07-24-2019 13:45:59 ELECTRIC TOOL REPAIRER by Quoc Son [email or web address] <ELECTRONICALLY SIGNED> By: Quoc Son MD 07/24/19 1345 20 20 Quoc Son MD /EPI
--- NOTE | 2019-07-24 13:55 | EKG ---
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
--- NOTE | 2019-07-24 13:56 | EKG ---
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
[2019-07-24] MEDS ORDERED: XARELTO15 MG PO (14:14)
[2019-07-24] MEDS ORDERED: METOPROLOL SUCC25 M1 PO (14:15)
[2019-07-24] MEDS ORDERED: CLOPIDOGREL75 MG PO (14:15)
[2019-07-24 14:19] VITALS: BP 130/57
--- NOTE | 2019-07-24 14:31 | NUR ---
ASSUMED PATIENT CARE AT 0700. A/O X4. AMBULATED IN ROOM. SB /ST/A FIB ON MONITOR. DENIES CHEST PIAN. DC TO [facility] NOW.
== END 2019-07-24 15:30 | disposition home or self-care (01) | DRG 64 ==
LOC: ER 12:27 → EROBS 16:36 → 3W 16:36
PROVIDERS: Emergency Medicine; Nurse Practitioner Adult Health; ADMIT Hospitalist
DX: I63.9 Cerebral infarction, unspecified (principal); E43 Unspecified severe protein-calorie malnutrition; I10 Essential (primary) hypertension; D47.3 Essential (hemorrhagic) thrombocythemia; E78.5 Hyperlipidemia, unspecified; K21.9 Gastro-esophageal reflux disease without esophagitis; H40.9 Unspecified glaucoma; R00.1 Bradycardia, unspecified; I25.10 Atherosclerotic heart disease of native coronary artery without angina pectoris; I48.0 Paroxysmal atrial fibrillation; Z79.01 Long term (current) use of anticoagulants; Z82.49 Family history of ischemic heart disease and other diseases of the circulatory system; Z85.6 Personal history of leukemia; Z90.49 Acquired absence of other specified parts of digestive tract; Z90.89 Acquired absence of other organs; Z79.891 Long term (current) use of opiate analgesic; Z79.899 Other long term (current) drug therapy; Z88.0 Allergy status to penicillin
CPT/HCPCS: 10879

== ENCOUNTER → 2019-08-27 | Outpatient (CLI) | payer OTHER, BC ==
[~2019-08-27] MED LIST changes: +ALEVE220 M1 PO; +BIOTIN10000 MC1 PO; +CLOPIDOGREL75 MG PO; +METOPROLOL SUCC25 M1 PO; +PLAVIX 75 MG TA75 MG PO; +XARELTO15 MG PO
== END ==
LOC: SJCVC 13:15
DX: I48.0 Paroxysmal atrial fibrillation (principal); I48.3 Typical atrial flutter; D47.3 Essential (hemorrhagic) thrombocythemia; I63.10 Cerebral infarction due to embolism of unspecified precerebral artery; I49.5 Sick sinus syndrome; I10 Essential (primary) hypertension; K21.9 Gastro-esophageal reflux disease without esophagitis; Z79.899 Other long term (current) drug therapy; Z90.49 Acquired absence of other specified parts of digestive tract

== ENCOUNTER → 2019-08-31 | Outpatient (CLI) | payer OTHER, BC ==
[~2019-08-31] VITALS: Ht 182.9 cm; Wt 72.6 kg
[2019-08-31 10:53] VITALS: BP 136/63
--- NOTE | 2019-08-31 11:17 | NUR ---
Pain Clinic Assessment: 1. History of Osteoarthritis: HIPS History of Rheumatoid Arthritis: DENIES 2. Height: 6 ft. 0 in. 182.9 cm. Weight: 160.0 lb. oz. 72.576 kg. Patient's BMI: 21.7 3. Vital Signs: BP: 136/63 Pulse: 58 Resp: 14 Temp: 02 Sat: 98 ECG Mon: 4. Pain Intensity: 2 5. Fall Risk: Dizziness: N Needs help standing or walking: N Fallen in the last 3 months: N Fall risk comments: 6. Patient on Blood Thinner: Clopidogrel Bisulf(Plavix 7. History of Hypertension: Y 8. Opioid Therapy greater than 6 weeks: Y Opiate Contract Signed: 05/10/17 9. Risk Assessment Tool Provided: LOW RISK 0/3 10. Functional Assessment Tool: 11. Recreational Drug Use: Never Drug Type: Tobacco Use: Former Smoker Tobacco Type: Cigarettes Amount or Packs/day: How Many Years: Alcohol Use: Yes Frequency: Daily Quant:
--- NOTE | 2019-09-01 13:40 | HPC ---
[facility] [address] [address] [place] [address] PAIN MANAGEMENT CONSULTATION Name: KELSEY ROYAL Room #: REG THERESAAnders Thompson#: [id number] Admission: 08/31/19 Attend Phys: Johanna Jiang Discharge: Date of : 32 Report #: [id number] THIS REPORT FOR: cc: Wade Albarran MD, Kirk D. MD Hocker, Amanda CNS ~ THIS REPORT FOR: //name// CC: Johanna Albarran DATE OF SERVICE: 08/31/2019 CHIEF COMPLAINT: Chronic low back pain with spinal stenosis. HISTORY OF PRESENT ILLNESS: This is a very pleasant 89-year-old gentleman who returns to the pain clinic today for refill of his medications. Today, he is reporting he was recently in the hospital, discovered he had atrial fibrillation, is now currently taking Xarelto and Plavix. He reports he may have had a slight stroke as well, but he has no deficits. He also reports that his was recently diagnosed with leukemia and is now undergoing treatments. He has been busy helping take care of her. His family member is here today with him at his appointment. The patient is reporting a pain score of 2/10 today in his lower back that radiates into his right leg at times, it is an aching, constant pain, worse with standing and walking as well as doing yardwork. He reports that sitting and his medication has been very beneficial. He does tell me today he recently filled his last 8-week prescription at the end of last week. He thought he was completely out of his medications, but it come to realize he has not been taking 3 tablets every day. He has been getting by with less, so today he is not needing to fill his prescriptions, but is here for refills for his next month. The patient also reports he is going to have a pacemaker placed on Saturday. ALLERGIES: PENICILLIN. CURRENT LIST OF MEDICATIONS: Plavix, Xarelto, Flomax, hydrocodone 10/325 p.r.n., vitamin B12, metoprolol, Linzess, Xalatan, omeprazole, aspirin and Zocor, biotin. PQRS: 1. 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 Denies any rheumatoid arthritis. 2. Height is 6 feet, weight is 160, BMI is 21. 3. Vital Signs: 136/63, pulse is 58, respirations 14, oxygen sat is 98. 4. Pain score is 2/10. [address] [address] PAIN MANAGEMENT CONSULTATION Name: KELSEY ROYAL Room #: REG CLI Donna#: [id number] Admission: 08/31/19 Attend Phys: Johanna Jiang Discharge: Date of : 32 Report #: [id number] 5. Denies dizziness, does not need help walking or standing, has not fallen in the last 3 months. 6. The patient is on Plavix and Xarelto, has a history of hypertension. 7. Opioid therapy is greater than 6 weeks; therefore, an opioid signed contract is on the chart. Risk assessment tool is low. Functional assessment is . 8. Recreational drug use, he denies. He is a former smoker and occasionally drinks alcohol. According to the prescription monitoring system, he filled his last prescription on Saturday, not needing to fill them today. They are needed in about 4 weeks. His morphine mEq according to the CDC guidelines is 30. PHYSICAL EXAMINATION: GENERAL: This is alert and orientated 89-year-old gentleman who appears his stated age or slightly younger, rating his pain score 2/10. HEENT: Normocephalic, atraumatic. Extraocular eye muscles are intact. Mucous membranes are moist. He does have a Band-Aid across to his lower neck due to a recent shaving accident. MUSCULOSKELETAL: Has tenderness in his lumbar spine, worse with flexion and extension. His gait is slightly antalgic. He moves from sitting to standing, though independently. His lower extremity strength judged to be 5/5 in all major muscle groups. IMPRESSION: 1. Chronic low back pain with radiculopathy. 2. Spinal stenosis at the L3-L4 level. 3. Multilevel degenerative disk disease. 4. Management of high risk medications under terms of written opioid agreement. We reviewed the fact that opiate medications are being used to provide analgesia adequate to support activities of daily living, not attempting to achieve a specific pain score on the 0-10 Visual Analog Scale. The current opiate medications are providing sufficient analgesia to allow the patient to participate in activities of daily living. The patient is not exhibiting any aberrant behavior suggestive of drug diversion. The patient is not having any adverse reactions to medications. The patient is not suffering from daytime somnolence or mental acuity changes. The patient is managing opiate-induced constipation with appropriate lgtg-yxw-jqfvxkv agents and dietary considerations. The patient was counseled on concern for caution with operating a motor vehicle while using opiate medications. A physical exam was performed and the patient's functional status was evaluated. All patients with back pain were advised against the bed rest greater than 4 days and were advised to return to normal activities. Pain score assessment was noted and the treatment plan was reviewed with the patient. All current medications, both prescribed and OTC were reviewed and reconciled on the [facility] [address] [place] [address] PAIN MANAGEMENT CONSULTATION Name: KELSEY ROYAL Room #: REG Anders Jaime.#: [id number] Admission: 08/31/19 Attend Phys: Johanna Jiang Discharge: Date of : 32 Report #: [id number] electronic medical record. Tobacco screening was accomplished and smoking cessation was advised when indicated. BMI was noted and diet/exercise modification was recommended for all patients following outside normal parameters. I reviewed with the patient today their responsibilities to safeguard prescription medications, reviewed their responsibility to utilize medications only as prescribed by the physician. They are to seek and receive pain medications only from 1 physician group ( [facility]). They are to use 1 pharmacy and keep the clinic informed if they change pharmacies. Their responsibilities include making followup visits in a timely fashion and to avoid abrupt discontinuation of medication usage. Their responsibilities further include bringing their medications (bottles from the pharmacy with residual pills) to the visit for possible confirmation of pill counts and the patient understands it is their responsibility to submit to random drug screens to ensure both that the medications prescribed are present, and that no other controlled substances are present. All prescriptions provided today were generated electronically. PLAN: 1. We discussed treatment options with the patient today. The patient finds his medication beneficial. He has been taking less than prescribed. The patient will need a prescription in 4 weeks. We will refill his medicines now 4 and 8 weeks. The patient will fill them accordingly. The patient has written in his notebook the dates to fill his medications in a time to make an appointment in our next visit in December. 2. The patient cautioned to not taking any anti-inflammatory since he is now on Plavix and Xarelto. He has been taking occasional Aleve. 3. The patient denies any problems with daytime sleepiness or constipation as a result of his medications. The patient is seen in collaboration today with Dr. Bello Desir. <ELECTRONICALLY SIGNED> By: Johanna Jiang 09/01/19 [id number] Johanna Jiang /nt
== END ==
LOC: PAIN 06:40
DX: M48.061 Spinal stenosis, lumbar region without neurogenic claudication (principal); M51.36 Other intervertebral disc degeneration, lumbar region; Z88.0 Allergy status to penicillin; Z79.899 Other long term (current) drug therapy; Z79.891 Long term (current) use of opiate analgesic

== ENCOUNTER 2019-09-04 10:27 | Observation (INO) | payer OTHER, BC ==
[~2019-09-04] VITALS: Ht 167.6 cm; Wt 71.7 kg
--- NOTE | ~2019-09-04 | P ---
[facility] [address] [address] [place] [address] PROCEDURE REPORT Name: KELSEY ROYAL Room #: 205-P [facility] M.R.#: [id number] Admission: 09/04/19 Attend Phys: Quoc Son MD Discharge: Date of : 32 Report #: [id number] THIS REPORT FOR: cc: Wade Albarran MD, Kirk D. MD Couchonnal, Luis F. MD ~ CC: Wade Son DATE OF SERVICE: 09/04/2019 PREOPERATIVE DIAGNOSES: 1. Atrial fibrillation. 2. Tachybrady syndrome. 3. Sick sinus syndrome. PROCEDURES PERFORMED: Dual-chamber pacemaker implantation. HISTORY: The patient is an 89-year-old with history of atrial fibrillation with rapid ventricular response as well as sick sinus syndrome and tachycardia-bradycardia syndrome here for dual chamber pacemaker implantation. DESCRIPTION OF PROCEDURE: The patient underwent informed consent. We discussed the details of the procedure including the risks, the patient was brought to the EP laboratory in fasting and sedated state, prepped and draped in sterile fashion, underwent venogram showing patency of left axillary vein and received IV antibiotics prior to initiation of the procedure. Next, I injected lidocaine below the level of clavicle. Incision was made and a pocket was created over the prepectoral fascia. Access obtained twice to the left axillary vein and sheaths were positioned using the modified Seldinger technique. Next, a lead was positioned in the right ventricular apex and he did have a large right ventricle. I then tried to position an atrial lead. The first time, the atrial lead dislodged. The second time the lead remained in position, but had very poor pacing thresholds even at a pulse width of 1.5 milliseconds. I therefore moved the lead again and still we had poor pacing thresholds, which I think was more of a reflection of his atrial tissue than anything. As such, the lead was left in this position. The leads were sutured to the prepectoral fascia. Device was connected, tested and found to be functioning normally. The atrial lead actually improved after waiting some time. The pocket was irrigated with vancomycin. Pocket was closed in 2 layers. Surgical glue was placed to outer skin layer. The patient awoke neurologically and hemodynamically intact. No complications and no significant bleeding. The implanted pacemaker was a Medtronic model number W3DR01, serial #[id number]. The atrial lead was a Medtronic model #5076, 52 cm, serial #[id number]. RV lead is Medtronic model #5076, 58 cm, serial #[id number]. Atrial lead demonstrated [facility] [address] [place] [address] PROCEDURE REPORT Name: KELSEY ROYAL Room #: [address] [place] [address] Sharita M.R.#: [id number] Admission: 09/04/19 Attend Phys: Quoc Son MD Discharge: Date of : 32 Report #: [id number] P-wave 2.1 millivolts, pacing impedance of 494 ohms, pacing threshold 1.75 volts at 1 millisecond. The RV lead demonstrated R waves of 7.1 millivolts, pacing impedance of 703 ohms, pacing threshold 0.75 volts at 0.4 milliseconds. The device was programmed to the DDDR 60-120 mode. CONCLUSIONS: 1. Successful dual-chamber pacemaker implantation. 2. Satisfactory atrial and ventricular pacing and sensing thresholds. By: 1329 16 Quoc Son MD /nt
[2019-09-04 10:58] VITALS: BP 122/49
[2019-09-04 11:12] LABS: HEMATOCRIT 38.2 % (42.0-52.0); HEMOGLOBIN 12.4 gm/dL (14.0-18.0); MCHC 32.6 g/dL (28.0-37.0); MCV 92.1 fL (80.0-100.0); RBC 4.15 mil/uL (4.50-6.00); RDW 16.4 % (10.5-14.5)
[2019-09-04 11:37] LABS: CREATININE 1.3 mg/dL (0.7-1.3)
[2019-09-04 11:49] LABS: ALBUMIN 3.5 g/dL (3.4-5.0); TOTAL BILIRUBIN 0.4 mg/dL (<0.1-1.0); TOTAL PROTEIN 6.5 g/dL (6.4-8.2)
[2019-09-04 11:56] LABS: ABSOLUTE NEUTROPHILS 7.9 thou/uL (1.4-8.2); LARGE PLATELETS FEW; PLATELET COUNT 844 thou/uL (150-400); PLATELET ESTIMATE INCREASED
[2019-09-04 12:01] LABS: PROTIME 10.3 Seconds (9.3-11.4)
[2019-09-04 14:25] VITALS: BP 151/78
[2019-09-04 16:00] VITALS: BP 158/80
--- NOTE | 2019-09-04 16:11 | NUR ---
PT ADMITED FROM [facility]. ADMISSION HX AND ASSESSMENT COMPLETED. VSS. PACEMAKER INCISION C/D/I WITH DERMABOND. IMMOBILIZER IN PLACE. POST PACEMAKER INSTRUCTIONS GIVEN TO PT. PT VERBERLISED UNDERSTANDING. WILL CONTINUE TO MONITOR.
[2019-09-04 21:00] VITALS: BP 150/70
[2019-09-05] VITALS: BP 132/59
[2019-09-05 04:30] VITALS: BP 127/72
[2019-09-05 07:45] VITALS: BP 127/72
[2019-09-05 07:46] VITALS: BP 127/72
[2019-09-05 08:00] VITALS: BP 139/59
--- NOTE | 2019-09-05 08:16 | NUR ---
ASSUME CARE 1900. PT/VITALS STABLE. INTERITTENT LEFT SHOULDER /INCISIONAL PAIN. RELIEF WITH PAIN MEDICATION AND REPOSITIONING. TOLERATES ACTIVITY WELL. ASSESSMENT AAS CHARTED. PROGRESSING WELL WITH POC. LEFT ARM IMMOBILIZER AND APACE NOTED ON MONITOR. HR CONTROLLED. NO DISTRESS NOTED THROUGHT SHIFT. ADEQUATE4 SLEEP NOTED. SON IN WITH PATIENT. PLAN IS POSSIBLE DISCHARGE TODAY. WILL CONTINUE TO MONITOR AND FOLLOW WITH POC
[2019-09-05 08:38] VITALS: BP 139/59
--- NOTE | 2019-09-05 11:00 | NUR ---
PT CARE ASSUMED APPROX 0700. ASSESSMENT CHARTED. PT DENIES PAIN AND SOA. VSS. UP WITH STEADY GAIT. APPROVED FOR DISCHARGE. LEAVING UNIT NOW WITH NURSING STAFF VIA WHEELCHAIR. DISCHARGE EDUCATION DONE WITH PT AND SON. BOTH DENY QUESTIONS OR CONCERNS REGARDING POST HOSPITAL CARE/INCISION CARE. IVs OUT, TELE OFF.
== END 2019-09-05 11:04 | disposition home or self-care (01) ==
LOC: CATH 10:27 → 2N 14:19
PROVIDERS: ADMIT Internal Medicine Cardiovascular Disease
DX: I49.5 Sick sinus syndrome (principal); I48.91 Unspecified atrial fibrillation
CPT/HCPCS: 62110; 62900; 70005

== ENCOUNTER → 2019-09-10 | Outpatient (CLI) | payer OTHER, BC | LOC: SJCVC 14:03 | DX: R94.31 Abnormal electrocardiogram [ECG] [EKG] (principal); I48.0 Paroxysmal atrial fibrillation; I49.5 Sick sinus syndrome; Z95.0 Presence of cardiac pacemaker ==

== ENCOUNTER → 2019-09-15 | Outpatient (CLI) | payer OTHER, BC | LOC: SJCVC 13:43 | DX: R94.31 Abnormal electrocardiogram [ECG] [EKG] (principal); Z95.0 Presence of cardiac pacemaker ==

== ENCOUNTER → 2019-10-07 | Outpatient (CLI) | payer OTHER, BC | LOC: SJCVC 13:40 | PROVIDERS: ATTEND Internal Medicine Cardiovascular Disease | DX: R94.31 Abnormal electrocardiogram [ECG] [EKG] (principal); I48.0 Paroxysmal atrial fibrillation; R00.1 Bradycardia, unspecified; D47.3 Essential (hemorrhagic) thrombocythemia; I63.10 Cerebral infarction due to embolism of unspecified precerebral artery; Z95.0 Presence of cardiac pacemaker ==

== ENCOUNTER → 2020-01-06 | Outpatient (CLI) | payer OTHER, BC ==
[~2020-01-06] MED LIST changes: +CARAFATE 1 GM TA1 GM PO; +FERREX 150 PLU1 EAC1 PO; +REMERON15 M2 PO; +TOPROL XL100 MG PO
== END ==
LOC: SJCVC 13:02
PROVIDERS: ATTEND Internal Medicine Cardiovascular Disease
DX: Z45.018 Encounter for adjustment and management of other part of cardiac pacemaker (principal); I48.0 Paroxysmal atrial fibrillation; I49.5 Sick sinus syndrome; D68.59 Other primary thrombophilia; K21.9 Gastro-esophageal reflux disease without esophagitis; E78.5 Hyperlipidemia, unspecified; Z86.73 Personal history of transient ischemic attack (TIA), and cerebral infarction without residual deficits; Z79.899 Other long term (current) drug therapy; Z82.49 Family history of ischemic heart disease and other diseases of the circulatory system; Z87.891 Personal history of nicotine dependence

== ENCOUNTER 2020-03-09 10:18 | Inpatient (IN) | payer OTHER, BC ==
[~2020-03-09] VITALS: Ht 182.9 cm; Wt 69.5 kg
[2020-03-09] VITALS (7 sets, daily range): BP systolic 130–151; BP diastolic 43–65
--- NOTE | ~2020-03-09 | P ---
[facility] [place] [address] PROCEDURE REPORT Name: MADDIKELSEY MALLORY Room #: 201-P ADM IN M.R.#: [id number] Admission: 03/09/20 Attend Phys: Yulissa Wiley MD Discharge: Date of : 32 Report #: [id number] THIS REPORT FOR: cc: Wade Albarran MD, Kirk D. MD Thesing, John A. MD ~ CC: Yulissa Albarran MD INPATIENT UPPER ENDOSCOPY REPORT BRIEF HISTORY: The patient is an 89-year-old male who presented to [facility] with a marked anemia with hemoglobin of 5. His MCV was in the 68 range. He had been taking Aleve daily. PREOPERATIVE DIAGNOSIS: Marked iron deficiency anemia with use of nonsteroidals. POSTOPERATIVE DIAGNOSES: 1. Moderate diffuse gastritis. 2. Small 2-3 cm sliding type hiatus hernia. 3. Moderate Schatzki ring. MEDICATIONS: Deep sedation with propofol per anesthesia. SPECIMENS: 1. Small bowel biopsies to rule out celiac disease regarding anemia. 2. Biopsies of gastritis, rule out Helicobacter pylori. ESTIMATED BLOOD LOSS: 3 mL. PROCEDURE: Esophagogastroduodenoscopy with biopsy, Alarcon dilation. FINDINGS: Prior to propofol sedation, procedure of upper endoscopy discussed with the patient as well as his daughter. Potential risks, benefits, and complications were discussed. He indicates he understands and desires to proceed. DESCRIPTION OF PROCEDURE: With the patient in left lateral decubitus position, the Olympus video endoscope was inserted in the cervical esophagus under direct vision without difficulty. Examination of this organ through its entire length revealed normal esophageal mucosa down to the squamocolumnar junction. The squamocolumnar junction was inspected. It was intact without ulcers, erosions or evidence of esophagitis or bleeding lesions. He was noted to have a moderate Schatzki ring. The scope passed easily into a small sliding type hiatus hernia. There is no evidence of blood loss within the hernia. The scope was advanced [facility] [address] [place] [address] PROCEDURE REPORT Name: KELSEY ROYAL Room #: 201-P [facility] IN M.R.#: [id number] Admission: 03/09/20 Attend Phys: Yulissa Wiley MD Discharge: Date of : 32 Report #: [id number] in the stomach, was examined on end view as well as retroflexed views. He was noted to have a diffuse gastritis involving the antrum in a moderate streaky linear fashion, but no evidence of ulcers, erosions or bleeding. There was a nodular appearance to the gastric mucosa. Again, no ulcers, erosions or bleeding lesions were seen. Biopsies obtained to evaluate for H. pylori. The pylorus was unremarkable. The duodenal bulb and postbulbar duodenal sweep down to the third portion was unremarkable. No bleeding lesions or ulcers were seen. Biopsies were obtained to evaluate for celiac disease in view of his marked iron deficiency anemia. At that point, the scope was slowly withdrawn and careful circumferential views were obtained. The patient was dilated with a 50-Ukrainian Alarcon dilator following withdrawal of the scope due to the moderately tight Schatzki ring. DISPOSITION: The patient with marked iron deficiency anemia. An obvious site of bleeding was not identified. We will follow up on biopsies. Proceed with colonoscopy at this time. By: 1201 1301 Kelsey Benton MD /nt
--- NOTE | ~2020-03-09 | P ---
[facility] [place] [address] PROCEDURE REPORT Name: LELEKELSEY Room #: 201-P [facility] IN M.R.#: [id number] Admission: 03/09/20 Attend Phys: Yulissa Wiley MD Discharge: 03/11/20 Date of : 32 Report #: [id number] THIS REPORT FOR: cc: Wade Albarran MD, Kirk D. MD [facility] Brandon ErKelsey MD ~ CC: Yulissa Albarran MD INPATIENT COLONOSCOPY REPORT BRIEF HISTORY: The patient is an 89-year-old male who presented with marked anemia with hemoglobin in the 5 range. He is also significantly iron deficient. He has been anticoagulated, but has not observed any gross rectal bleeding. PREOPERATIVE DIAGNOSIS: Iron deficiency anemia. POSTOPERATIVE DIAGNOSES: 1. Mild sigmoid diverticulosis coli. 2. Gvahf-px-awhmdlnz internal hemorrhoids. MEDICATIONS: Deep sedation with propofol per Anesthesia. SPECIMEN: None. ESTIMATED BLOOD LOSS: None. PROCEDURE: Colonoscopy to cecum and terminal ileum. FINDINGS: Prior to propofol sedation, procedure of colonoscopy was discussed with the patient as well as potential risks, benefits, and complications. He indicates he understands and desires to proceed. DESCRIPTION OF PROCEDURE: With the patient in left lateral decubitus position, digital examination was completed, which revealed no abnormalities. Subsequently, the Olympus video colonoscope was introduced into the rectum, advanced under direct vision to the cecum. Done with minimal difficulty. The cecum was identified by the ileocecal valve and the appendiceal orifice. I was able to visualize the distal segment of terminal ileum, which was inspected and noted to be unremarkable. No evidence of bleeding lesions. At that point, the scope was slowly withdrawn and careful circumferential views were obtained. The prep was excellent. The mucosa was within normal limits, normal vascular pattern, normal light reflex. As we withdrew the scope, no bleeding lesions, inflammatory lesions or neoplastic lesions were seen. Vascular ectasias were not seen. A source of blood loss was not identified on this examination. Normal colonic mucosa throughout the entire colon. In the sigmoid colon, a few [facility] [address] [place] [address] PROCEDURE REPORT Name: KELSEY ROYAL Room #: 201-P DIS IN M.R.#: [id number] Admission: 03/09/20 Attend Phys: Yulissa Wiley MD Discharge: 03/11/20 Date of : 32 Report #: [id number] small diverticula were seen. There was no endoscopic evidence of diverticulitis. Examination of the rectum revealed normal mucosa. However, on retroflexion, kwosl-wu-fgjsgroi internal hemorrhoids were seen. There was no evidence of bleeding or lesions responsible for anemia. Scope was withdrawn. The patient tolerated the procedure well. DISPOSITION: The patient with marked iron deficiency anemia. A source of blood loss was not identified. Please see upper endoscopy note as well. We will follow up on biopsies from the EGD regarding possible celiac disease. At this point, I think he would benefit from a small bowel ____ capsule. He will need iron supplementation. Cautious reinstitution of anticoagulation at this point would be reasonable. If he has gross GI bleeding, a radionuclide bleeding scan may be helpful. By: 1224 1320 Kelsey Benton MD /nt
[~2020-03-09 10:18] MED LIST changes: -CARAFATE 1 GM TA1 GM PO; -FERREX 150 PLU1 EAC1 PO; -REMERON15 M2 PO; -TOPROL XL100 MG PO
[2020-03-09 11:28] LABS: MCH 21.4 pg (26.0-34.0); MCHC 31.2 g/dL (28.0-37.0); MCV 68.5 fL (80.0-100.0); RBC 2.35 mil/uL (4.50-6.00); RDW 18.3 % (10.5-14.5); WBC 7.3 thou/uL (4.0-11.0)
[2020-03-09 11:32] LABS: HEMATOCRIT 16.1 % (42.0-52.0)
[2020-03-09 11:34] LABS: CALCIUM 8.4 mg/dL (8.5-10.1); CREATININE 1.3 mg/dL (0.7-1.3); POTASSIUM 4.1 mmol/L (3.5-5.1)
[2020-03-09 11:41] LABS: APTT 23.3 Seconds (24.5-32.8); INR 1.1; PROTIME 11.3 Seconds (9.3-11.4)
[2020-03-09] MEDS ORDERED: XARELTO15 MG PO (12:24)
[2020-03-09] MEDS ORDERED: CARAFATE 1 GM TA1 GM PO (12:25)
[2020-03-09] MEDS ORDERED: REMERON15 M2 PO (12:25)
--- NOTE | 2020-03-09 14:51 | NUR ---
SIGNED CONSENT OBTAINED FROM THE PT FOR BLOOD TRANSFUSION. PT DENIED HAVING ANY PRIOR TRANSFUSIONS.
--- NOTE | 2020-03-09 18:47 | NUR ---
PT CARE ASSUMED APPROX 1750. ASSESSMENT CHARTED. PT DENIES PAIN AND SOA. VSS. UP WTIH SBA. DAUGHTER AT BEDSIDE. EDUCATED TO POC WELL PT. BLOOD TRANSFUSION TOLERATED. NO DISTRESS NOTED.
--- NOTE | 2020-03-09 19:09 | NUR ---
PRE BLOOD TRANSFUSION VITAL SIGNS ARE ENDING TRANSFUSION VITAL SIGNS FOR ER BLOOD PRODUCT INFUSION. UNABLE TO CHART ON ER TRANSFUSION RECORD.
[2020-03-10 00:38] LABS: HEMATOCRIT 23.2 % (42.0-52.0)
[2020-03-10 00:43] LABS: HEMOGLOBIN 7.7 gm/dL (14.0-18.0)
--- NOTE | 2020-03-10 03:13 | NUR ---
ASSUMED CARE OF PATIENT AT 1900. VSS, 3RD TRANSFUSION OF BLOOD GIVEN. H&H RECHECKED HGB UP TO 7.7. NPO AFTER MIDNIGHT FOR PLANNED EGD. WORKING TOWARDS POC GOALS.
[2020-03-10 03:40] VITALS: BP 122/54
--- NOTE | 2020-03-10 04:24 | NUR ---
ASSUMED CARE AT 0330. PATIENT SLEEPING. RESTING QUIETLY WITHOUT PRESENT COMPLAINTS. ASSIST UP TO USE URINAL NEEDED. WORKING ON GOALS AND PLAN OF CARE FOR NOC. AWAITING AM TEST. TEACHING FOR AM EGD. PATIENT STATES UNDERSTANDING. CONTINUE TO ASSES CLOSELY.
[2020-03-10 05:34] LABS: BASOPHILS 1.3 % (0.0-2.0); EOSINOPHILS 2.9 % (0.0-3.0); HEMOGLOBIN 7.6 gm/dL (14.0-18.0); LYMPHOCYTES 9.1 % (24.0-44.0); MCH 24.4 pg (26.0-34.0); MONOCYTES 6.4 % (1.0-8.0); POLYS 80.3 % (36.0-66.0); RDW 19.3 % (10.5-14.5); WBC 8.8 thou/uL (4.0-11.0)
[2020-03-10 05:41] LABS: CREATININE 1.1 mg/dL (0.7-1.3); POTASSIUM 4.1 mmol/L (3.5-5.1)
[2020-03-10 05:58] LABS: MCV 74.1 fL (80.0-100.0); PLATELET COUNT 723 thou/uL (150-400)
[2020-03-10 07:39] VITALS: BP 127/60
[2020-03-10 12:53] LABS: % SATURATION 3 % (20-39); IRON 12 ug/dL (65-175); TIBC 367 ug/dL (250-450)
--- NOTE | 2020-03-10 12:57 | NUR ---
Met with patient and dtr at bedside. Patient admits with anemia/GI Bleed. SUPPORT ARCHITECT patient independent with adls and self care. He uses no assistive device and cont to drive. He has steps in home and only recently diffulty with steps. He reports would at top of stair feel SOA. Feels this is due to weakness from diagnosis. Discussed role of casemgt and possible HH care. Dtr did not believe he would need HH. pcp Dr. Wade Albarran. casemgt following.
[2020-03-10 17:00] VITALS: BP 161/72
--- NOTE | 2020-03-10 17:00 | NUR ---
Pt given instructions for taking electrolyte prep for colonoscopy. Jug of solution set at bedside. Pt's daughter, Lu, at bedside and will assist with pouring glasses of the prep solution. Pt to take half this evening and finish second half in the morning.
--- NOTE | 2020-03-10 19:50 | NUR ---
Report given to GONZALO Parrish assuming care of the patient. Pt prep and has had two bowel movements. COVID test is still pending.
[2020-03-10 20:06] VITALS: BP 176/83
[2020-03-11 00:10] VITALS: BP 154/43
--- NOTE | 2020-03-11 03:38 | NUR ---
PT IS DOING BOWEL PREP. NPO SINCE MIDNIGHT. UP WITH WALKER AND NURSING ASSISTANCE. LUNGS ARE CLEAR. ABDOMEN IS FLAT BOWELS SOUNDS ACTIVE X4 QUADRANTS. DENIES ANY PAIN. PLAN FOR COLONOSCOPY TODAY. AWAITING COVID SWABS. TRYING TO SLEEP IN BETWEEN HIS BATHROOM STOOLS THROUGH THE NIGHT. WILL CONTINUE TO FOLLOW PLAN OF NURSING CARE PLAN AT THIS TIME
[2020-03-11 04:44] VITALS: BP 151/47
[2020-03-11 05:23] LABS: HEMATOCRIT 26.7 % (42.0-52.0); HEMOGLOBIN 8.5 gm/dL (14.0-18.0); MCH 23.8 pg (26.0-34.0); MCV 74.3 fL (80.0-100.0); RBC 3.59 mil/uL (4.50-6.00); RDW 20.2 % (10.5-14.5); WBC 13.5 thou/uL (4.0-11.0)
[2020-03-11 07:43] VITALS: BP 133/53
[2020-03-11] MEDS ORDERED: FERREX 150 PLU1 EAC1 PO (14:24)
[2020-03-11 14:38] VITALS: BP 133/53
--- NOTE | 2020-03-11 15:08 | NUR ---
ASSESSMENT CHARTED. PT ALERT AND ORIENTED. VSS. HAD EGD AND COLONOSCOPY TODAY. REPORT FEELING MUCH BETTER. ORDERS GIVEN TO DISCHARGE PT TO HOME. DISCHARGE ORDERS GIVEN TO PT AND THE DAUGHTER.
--- NOTE | 2020-03-11 16:22 | NUR ---
NADIR ALMANZARK W/PT'S DTR, ZACH RE POST HOSPITAL CARE, AND ZACH DECLINED HOME HEALTH STATING, "NO, HE DOESNT NEED HOME HEALTH."
== END 2020-03-11 15:45 | disposition home or self-care (01) | DRG 378 ==
LOC: ER 10:18 → EROBS 13:56 → 2N 13:56
PROVIDERS: Emergency Medicine; Nurse Practitioner; Nurse Practitioner Family; ADMIT Hospitalist; ATTEND Hospitalist
PROC: 30233N1 Transfusion of Nonautologous Red Blood Cells into Peripheral Vein, Percutaneous Approach (ICD-10-PCS; principal; 2020-03-11)
PROC: 0DB68ZX Excision of Stomach, Via Natural or Artificial Opening Endoscopic, Diagnostic (ICD-10-PCS; principal; 2020-03-11)
PROC: 0D758ZZ Dilation of Esophagus, Via Natural or Artificial Opening Endoscopic (ICD-10-PCS; principal; 2020-03-11)
PROC: 0DJ08ZZ Inspection of Upper Intestinal Tract, Via Natural or Artificial Opening Endoscopic (ICD-10-PCS; principal; 2020-03-11)
DX: K29.71 Gastritis, unspecified, with bleeding (principal); D62 Acute posthemorrhagic anemia; K57.31 Diverticulosis of large intestine without perforation or abscess with bleeding; I49.5 Sick sinus syndrome; E78.5 Hyperlipidemia, unspecified; K59.09 Other constipation; K44.9 Diaphragmatic hernia without obstruction or gangrene; K22.2 Esophageal obstruction; K64.8 Other hemorrhoids; I48.0 Paroxysmal atrial fibrillation; Z60.2 Problems related to living alone; N40.0 Benign prostatic hyperplasia without lower urinary tract symptoms; Z20.828 Contact with and (suspected) exposure to other viral communicable diseases; D47.3 Essential (hemorrhagic) thrombocythemia; Z79.899 Other long term (current) drug therapy; Z88.0 Allergy status to penicillin; Z95.0 Presence of cardiac pacemaker; Z90.49 Acquired absence of other specified parts of digestive tract; Z87.891 Personal history of nicotine dependence; Z86.73 Personal history of transient ischemic attack (TIA), and cerebral infarction without residual deficits; Z82.49 Family history of ischemic heart disease and other diseases of the circulatory system
CPT/HCPCS: 10081; 62110; 62900; 70005

== ENCOUNTER → 2020-03-21 | Outpatient (CLI) | payer OTHER, BC ==
[~2020-03-21] VITALS: Ht 182.9 cm; Wt 68.9 kg
[~2020-03-21] MED LIST changes: +CARAFATE 1 GM TA1 GM PO; +FERREX 150 PLU1 EAC1 PO; +REMERON15 M2 PO; +TOPROL XL25 MG PO
[2020-03-21 08:12] VITALS: BP 140/71
--- NOTE | 2020-03-21 08:17 | NUR ---
Pain Clinic Assessment: 1. History of Osteoarthritis: HIPS History of Rheumatoid Arthritis: DENIES 2. Height: 6 ft. 0 in. 182.9 cm. Weight: 152.0 lb. oz. 68.947 kg. Patient's BMI: 20.6 3. Vital Signs: BP: 140/71 Pulse: 89 Resp: 16 Temp: 02 Sat: 100 ECG Mon: 4. Pain Intensity: 3-4 5. Fall Risk: Dizziness: N Needs help standing or walking: N Fallen in the last 3 months: N Fall risk comments: 6. Patient on Blood Thinner: Clopidogrel Bisulf(Plavix 7. History of Hypertension: Y 8. Opioid Therapy greater than 6 weeks: Y Opiate Contract Signed: 05/10/17 9. Risk Assessment Tool Provided: LOW RISK 0 10. Functional Assessment Tool: 11. Recreational Drug Use: Never Drug Type: Tobacco Use: Former Smoker Tobacco Type: Amount or Packs/day: How Many Years: Alcohol Use: Yes Frequency: Quant:
--- NOTE | 2020-03-22 07:56 | HPC ---
[facility] [address] [address] PAIN MANAGEMENT CONSULTATION Name: KELSEY ROYAL Room #: REG CARISSA MJaime.#: [id number] Admission: 03/21/20 Attend Phys: Joahnna Jiang Discharge: Date of : 32 Report #: [id number] THIS REPORT FOR: cc: Wade Albarran MD, Kirk D. MD Hocker, Amanda CNS ~ CC: Bello Desir MD DATE OF SERVICE: 03/21/2020 CHIEF COMPLAINT: Chronic low back pain with spinal stenosis. HISTORY OF PRESENT ILLNESS: This is a very pleasant 89-year-old gentleman, who is tearful throughout our visit today. He lost his in September since our last visit with him and he has been dealing with that loss these last few months. The patient also reports that he was recently hospitalized due to a low hemoglobin of 5. While hospitalized and had an EGD and colonoscopy, which did not show any active bleeding, but he did receive several units of blood as well as iron during that hospitalization. He does continue to be on Xarelto and Plavix at this time, but he did report that he had been taking some Aleve, which he is no longer taking. The patient reports his pain score of 3-4. He finds that taking 2 hydrocodone a day most days is beneficial, occasionally requiring a third. He reports that his pain is in his lower back area, worse with yard work, walking and prolonged standing. He feels that sitting, lying down and medications have been beneficial. He denies constipation, but has recently started iron twice a day, so we did discuss possible complications as a result of that. Today he is requesting refills of medicine. ALLERGIES: PENICILLIN. CURRENT LIST OF MEDICATIONS: Plavix, Xarelto, Biotin, B12, simvastatin, Flomax, Toprol, Linzess, omeprazole, hydrocodone, iron. PQRS: 1. He has a history of osteoarthritis in his back and hips. He denies any rheumatoid arthritis. 2. Height is 6 feet, weight is 152, BMI is 20; this is down 8 pounds since our last visit. 3. Vital signs 140/71, pulse is 89, respirations 16, oxygen sat is 100. 4. Pain score is 3-4. 5. Denies dizziness, does not need help walking or standing, has not fallen in the last 3 months. 6. The patient is on Plavix and Xarelto for blood thinners. He also has a history of hypertension. [facility] [address] [place] [address] PAIN MANAGEMENT CONSULTATION Name: KELSEY ROYAL Room #: REG CLI Donna#: [id number] Admission: 03/21/20 Attend Phys: Johanna Jiang Discharge: Date of : 32 Report #: [id number] 7. Opioid therapy is greater than 6 weeks; therefore, an opioid signed contract is on the chart. Risk assessment is low. Functional assessment . 8. Recreational drug use, he denies. He is a former smoker and occasionally drinks alcohol. According to the prescription monitoring system, the patient has filled all of our past prescriptions. There has been some time since his last fill that he has been taking less medication than prescribed. His morphine mEq according to the CDC guidelines is 25. PHYSICAL EXAMINATION: GENERAL: This is alert and orientated, slightly pale in appearance today 89-year-old gentleman, who is rating his pain score at 3-4, tearful throughout some of our conversation today, but he is a good historian. HEENT: Normocephalic, atraumatic. Extraocular eye muscles are intact. Mucous membranes are moist. He is wearing a mask. MUSCULOSKELETAL: He has tenderness in the lumbar spine, worse with flexion and extension. He has an antalgic gait. Lower extremity strength is symmetrical at 5/5 in all major muscle groups. He walks independently. IMPRESSION: 1. Chronic low back pain with radiculopathy. 2. Spinal stenosis at the L3-L4 level. 3. Multilevel degenerative disk disease. 4. Anticoagulation therapy with recent defibrillator pacemaker placement. 5. Management of high risk medications under terms of written opioid agreement. We reviewed the fact that opiate medications are being used to provide analgesia adequate to support activities of daily living, not attempting to achieve a specific pain score on the 0-10 Visual Analog Scale. The current opiate medications are providing sufficient analgesia to allow the patient to participate in activities of daily living. The patient is not exhibiting any aberrant behavior suggestive of drug diversion. The patient is not having any adverse reactions to medications. The patient is not suffering from daytime somnolence or mental acuity changes. The patient is managing opiate-induced constipation with appropriate zuja-kgr-fjysjru agents and dietary considerations. The patient was counseled on concern for caution with operating a motor vehicle while using opiate medications. PLAN: 1. We discussed treatment options with the patient today. The patient was recently hospitalized due to a low hemoglobin of 5. He has been started on iron 325 mg b.i.d. I explained to the patient that he may have increase in constipation. He does take one Linzess every third day. I explained to him with iron and hydrocodone, he may need to increase that in more frequently, use of everyday or may need to add a stool softener to his regimen. [address] [address] PAIN MANAGEMENT CONSULTATION Name: KELSEY ROYAL [facility] [id number] Admission: 03/21/20 Attend Phys: Johanna Jiang Discharge: Date of : 32 Report #: [id number] 2. 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 The patient verbalizes understanding. 3. We determined that the patient has been taking 2 pain pills most days, occasionally 3, so we will decrease his hydrocodone slightly giving him 75 tablets in a month. If this he finds is not beneficial, he may call our office and we will return it to 90 pills. Scripts will be sent electronically by Dr. Bello Desir today for hydrocodone 10/325, 75 pills for 3 months. 4. The patient is seen in collaboration with Dr. Bello Desir who did see the patient as well today. <ELECTRONICALLY SIGNED> By: Johanna Jiang 03/22/20 [id number] Johanna Jiang /nt
== END ==
LOC: PAIN 06:52
PROVIDERS: ATTEND Clinical Nurse Specialist Adult Health
DX: M48.061 Spinal stenosis, lumbar region without neurogenic claudication (principal); G89.29 Other chronic pain; M51.06 Intervertebral disc disorders with myelopathy, lumbar region; M51.16 Intervertebral disc disorders with radiculopathy, lumbar region; F11.20 Opioid dependence, uncomplicated; M48.062 Spinal stenosis, lumbar region with neurogenic claudication; Z79.01 Long term (current) use of anticoagulants; Z95.810 Presence of automatic (implantable) cardiac defibrillator; Z88.8 Allergy status to other drugs, medicaments and biological substances; Z79.899 Other long term (current) drug therapy

== ENCOUNTER → 2020-03-24 | Outpatient (CLI) | payer OTHER, BC | LOC: LAB | PROVIDERS: ATTEND Specialist | DX: Z01.812 Encounter for preprocedural laboratory examination (principal); Z20.828 Contact with and (suspected) exposure to other viral communicable diseases ==

== ENCOUNTER → 2020-03-29 | Outpatient (CLI) | payer OTHER, BC | END | disposition home or self-care (01) | LOC: GI 06:55 | PROVIDERS: ATTEND Specialist | DX: D64.9 Anemia, unspecified (principal); K21.9 Gastro-esophageal reflux disease without esophagitis; Z98.890 Other specified postprocedural states; Z79.899 Other long term (current) drug therapy; Z95.0 Presence of cardiac pacemaker; Z88.8 Allergy status to other drugs, medicaments and biological substances ==

== ENCOUNTER → 2020-05-30 | Outpatient (CLI) | payer OTHER, BC | LOC: SJCVC 13:24 | PROVIDERS: ATTEND Internal Medicine Cardiovascular Disease | DX: R94.31 Abnormal electrocardiogram [ECG] [EKG] (principal); I48.0 Paroxysmal atrial fibrillation; N28.9 Disorder of kidney and ureter, unspecified; I49.5 Sick sinus syndrome; E78.00 Pure hypercholesterolemia, unspecified; D64.9 Anemia, unspecified; D47.3 Essential (hemorrhagic) thrombocythemia; I65.23 Occlusion and stenosis of bilateral carotid arteries; Z95.0 Presence of cardiac pacemaker; Z79.899 Other long term (current) drug therapy; Z87.891 Personal history of nicotine dependence ==

== ENCOUNTER → 2020-07-11 | Outpatient (CLI) | payer OTHER, BC ==
[~2020-07-11] VITALS: Ht 180.3 cm; Wt 73.2 kg
[~2020-07-11] MED LIST changes: +TOPROL XL100 MG PO; -TOPROL XL25 MG PO
[2020-07-11 08:52] VITALS: BP 142/82
--- NOTE | 2020-07-11 09:23 | NUR ---
Pain Clinic Assessment: 1. History of Osteoarthritis: HIPS History of Rheumatoid Arthritis: DENIES 2. Height: 5 ft. 11 in. 180.3 cm. Weight: 161.4 lb. oz. 73.211 kg. Patient's BMI: 22.5 3. Vital Signs: BP: 142/82 Pulse: 78 Resp: 16 Temp: 02 Sat: 100 ECG Mon: 4. Pain Intensity: 3-4 5. Fall Risk: Dizziness: N Needs help standing or walking: N Fallen in the last 3 months: N Fall risk comments: 6. Patient on Blood Thinner: Clopidogrel Bisulf(Plavix 7. History of Hypertension: Y 8. Opioid Therapy greater than 6 weeks: Y Opiate Contract Signed: 05/10/17 9. Risk Assessment Tool Provided: LOW RISK 0 10. Functional Assessment Tool: 11. Recreational Drug Use: Never Drug Type: Tobacco Use: Former Smoker Tobacco Type: Amount or Packs/day: How Many Years: Alcohol Use: Yes Frequency: Quant:
--- NOTE | 2020-07-12 12:35 | HPC ---
[facility] [address] [place] [address] PAIN MANAGEMENT CONSULTATION Name: KELSEY ROYAL Room #: REG CARISSA M.Amara.#: [id number] Admission: 07/11/20 Attend Phys: Johanna Jiang Discharge: Date of : 32 Report #: [id number] THIS REPORT FOR: cc: FAM - No family physician/PCP FAM - No family physician/PCP Johanna Jiang ~ DATE OF SERVICE: 07/11/2020 cc: Dr. Bello Chapin CHIEF COMPLAINT: Chronic low back pain with spinal stenosis. HISTORY OF PRESENT ILLNESS: This is a very pleasant 89-year-old gentleman who returns to the pain clinic today for refill of his medications. The patient continues to suffer from low back pain as a result of his spinal stenosis that occasionally radiates into his buttocks today. Today, he is reporting a pain score of 3-4. His pain is worse in the morning and when he is busy working outside with prolonged standing and walking. He describes it as a dull, intermittent pain that is better when he is lying down, resting or taking his medications. He had some issues with constipation and does take Linzess and prune juice on a daily basis that does relieve any of his constipation issues and he does not suffer from any daytime somnolence as a result of his medications. ALLERGIES: PENICILLIN. CURRENT LIST OF MEDICATIONS: Xarelto 15 mg daily, hydrocodone 10/325 2-3 times a day, Toprol, iron, Carafate, Remeron, Linzess, biotin, Plavix 75 mg daily, Flomax, vitamin B12, omeprazole, and simvastatin. PQRS: 1. He has osteoarthritic changes in his back and hips. Denies any rheumatoid arthritis. 2. Height is 5 feet 11 inches, weight is 161, BMI is 22. 3. Vital signs 142/82, pulse is 78, respirations 16, oxygen sat is 100. 4. Pain score is 3 to 4. 5. Denies dizziness, does not need help walking or standing, has not fallen in the last 3 months. 6. The patient is on Plavix and Xarelto for blood thinners. He does take medicines for hypertension as well. 7. Opioid therapy is greater than 6 weeks; therefore, an opioid signed contract is on the chart. Risk assessment is low. Functional assessment is . 8. Recreational drug use, he denies. He is a former smoker and does occasionally drink alcohol. According to the prescription monitoring system, he is filling appropriately. He has actually passed time to fill his medications, taking some days less than [address] [address] PAIN MANAGEMENT CONSULTATION Name: KELSEY ROYAL Room #: REG CARISSA Thompson#: [id number] Admission: 07/11/20 Attend Phys: Johanna Jiang Discharge: Date of : 32 Report #: [id number] the prescribed amount. His morphine mEq is 20-30 MME per day. PHYSICAL EXAMINATION: GENERAL: This is alert and orientated, tearful throughout some of our visit today 89-year-old gentleman who appears his stated age, placing his current pain score at 3-4. HEENT: Normocephalic, atraumatic. Extraocular eye muscles are intact. He is wearing a mask and glasses and his speech is fluent. MUSCULOSKELETAL: He has tenderness in his lumbar spine that does increase with flexion and extension. He moves easily from the seated to standing position. He has a slightly antalgic gait. His strength is symmetrical in his lower extremities at 5/5. IMPRESSION: 1. 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 2. Spinal stenosis at the L3-L4 level. 3. Multilevel degenerative disk disease. 4. Anticoagulation with defibrillator in place and two blood thinners. 5. Management of high risk medications under terms of written opioid agreement. We reviewed the fact that opiate medications are being used to provide analgesia adequate to support activities of daily living, not attempting to achieve a specific pain score on the 0-10 Visual Analog Scale. The current opiate medications are providing sufficient analgesia to allow the patient to participate in activities of daily living. The patient is not exhibiting any aberrant behavior suggestive of drug diversion. The patient is not having any adverse reactions to medications. The patient is not suffering from daytime somnolence or mental acuity changes. The patient is managing opiate-induced constipation with appropriate ensp-xck-bnceaas agents and dietary considerations. The patient was counseled on concern for caution with operating a motor vehicle while using opiate medications. PLAN: 1. We discussed treatment options with the patient today. The patient does continue on two blood thinners, Xarelto and Plavix. He reports that Dr. Bailey, follow up with him in December and January, so he will continue those medications until then. He is seeing a new primary care doctor later this month. We have sent dictations to his previous primary care doctor for 40 years, recently and he has found a new physician here in the hospital per Dr. Bailey's recommendation. We will have these records sent to him today. 2. The patient will continue on his hydrocodone 10/325. We will send 75 tablets per month. The patient has been able to decrease this medication and still doing quite well in controlling his pain at the lower dose. Dr. Bello Desir will send 3 months to his [facility] pharmacy. [facility] [address] [facility] [address] PAIN MANAGEMENT CONSULTATION Name: KELSEY ROYAL Room #: STEFFEN Thompson#: [id number] Admission: 07/11/20 Attend Phys: Johanna Jiang Discharge: Date of : 32 Report #: [id number] 3. The patient will return in 3-4 months as needed. He is seen today in collaboration with Dr. Desir. <ELECTRONICALLY SIGNED> By: Johanna Jiang 07/12/20 [id number] Johanna Jiang /nt
== END ==
LOC: PAIN 06:55
PROVIDERS: ATTEND Clinical Nurse Specialist Adult Health
DX: M47.26 Other spondylosis with radiculopathy, lumbar region (principal); G89.29 Other chronic pain; M48.00 Spinal stenosis, site unspecified; M51.36 Other intervertebral disc degeneration, lumbar region; Z79.01 Long term (current) use of anticoagulants; Z79.899 Other long term (current) drug therapy; Z88.8 Allergy status to other drugs, medicaments and biological substances

== ENCOUNTER → 2020-11-14 | Outpatient (CLI) | payer OTHER, BC ==
[~2020-11-14] VITALS: Ht 180.3 cm; Wt 76.0 kg
[2020-11-14 11:21] VITALS: BP 145/79
--- NOTE | 2020-11-14 11:45 | NUR ---
Pain Clinic Assessment: 1. History of Osteoarthritis: HIPS History of Rheumatoid Arthritis: DENIES 2. Height: 5 ft. 11 in. 180.3 cm. Weight: 167.6 lb. oz. 76.023 kg. Patient's BMI: 23.4 3. Vital Signs: BP: 145/79 Pulse: 79 Resp: 20 Temp: 02 Sat: 97 ECG Mon: 4. Pain Intensity: 2 5. Fall Risk: Dizziness: N Needs help standing or walking: N Fallen in the last 3 months: N Fall risk comments: 6. Patient on Blood Thinner: Clopidogrel Bisulf(Plavix 7. History of Hypertension: Y 8. Opioid Therapy greater than 6 weeks: Y Opiate Contract Signed: 05/10/17 9. Risk Assessment Tool Provided: LOW RISK 0 10. Functional Assessment Tool: 11. Recreational Drug Use: Never Drug Type: Tobacco Use: Former Smoker Tobacco Type: Amount or Packs/day: How Many Years: Alcohol Use: Yes Frequency: Daily Quant: 2
== END ==
LOC: PAIN 07:36
PROVIDERS: ATTEND Anesthesiology Pain Medicine
DX: M54.16 Radiculopathy, lumbar region (principal)

== ENCOUNTER → 2020-12-26 | Outpatient (CLI) | payer OTHER, BC | LOC: SJCVC 13:24 | PROVIDERS: ATTEND Internal Medicine Cardiovascular Disease | DX: I48.0 Paroxysmal atrial fibrillation (principal); I49.5 Sick sinus syndrome; E78.00 Pure hypercholesterolemia, unspecified; D47.3 Essential (hemorrhagic) thrombocythemia; I65.23 Occlusion and stenosis of bilateral carotid arteries; K21.9 Gastro-esophageal reflux disease without esophagitis; E78.5 Hyperlipidemia, unspecified; Z86.73 Personal history of transient ischemic attack (TIA), and cerebral infarction without residual deficits; Z82.49 Family history of ischemic heart disease and other diseases of the circulatory system; Z95.0 Presence of cardiac pacemaker; Z79.899 Other long term (current) drug therapy; Z72.89 Other problems related to lifestyle; Z88.0 Allergy status to penicillin; Z87.891 Personal history of nicotine dependence ==

== ENCOUNTER → 2021-03-02 | Outpatient (CLI) | payer OTHER, BC ==
[~2021-03-02] VITALS: Ht 180.3 cm; Wt 74.0 kg
[2021-03-02 10:01] VITALS: BP 118/74
--- NOTE | 2021-03-02 10:14 | NUR ---
Pain Clinic Assessment: 1. History of Osteoarthritis: HIPS History of Rheumatoid Arthritis: DENIES 2. Height: 5 ft. 11 in. 180.3 cm. Weight: 163.2 lb. oz. 74.027 kg. Patient's BMI: 22.8 3. Vital Signs: BP: 118/74 Pulse: 73 Resp: 16 Temp: 02 Sat: 98 ECG Mon: 4. Pain Intensity: 2 5. Fall Risk: Dizziness: N Needs help standing or walking: N Fallen in the last 3 months: N Fall risk comments: 6. Patient on Blood Thinner: Clopidogrel Bisulf(Plavix 7. History of Hypertension: Y 8. Opioid Therapy greater than 6 weeks: Y Opiate Contract Signed: 05/10/17 9. Risk Assessment Tool Provided: LOW RISK 0 10. Functional Assessment Tool: 11. Recreational Drug Use: Never Drug Type: Tobacco Use: Former Smoker Tobacco Type: Amount or Packs/day: How Many Years: Alcohol Use: Yes Frequency: Quant:
== END ==
LOC: PAIN 06:54
PROVIDERS: ATTEND Clinical Nurse Specialist Adult Health
DX: M47.26 Other spondylosis with radiculopathy, lumbar region (principal); M51.16 Intervertebral disc disorders with radiculopathy, lumbar region; G89.29 Other chronic pain; I10 Essential (primary) hypertension; Z79.899 Other long term (current) drug therapy; Z79.891 Long term (current) use of opiate analgesic; Z72.89 Other problems related to lifestyle; Z87.891 Personal history of nicotine dependence; Z88.0 Allergy status to penicillin

== ENCOUNTER 2021-04-22 12:25 | Emergency (ER) | payer OTHER, BC ==
[~2021-04-22] VITALS: Ht 180.3 cm; Wt 72.6 kg
[2021-04-22] MEDS ORDERED: MIRALAX119 GM PO (15:59)
[2021-04-22 16:37] VITALS: BP 122/69
== END 2021-04-22 16:15 | disposition home or self-care (01) ==
LOC: ER 12:25
DX: K56.41 Fecal impaction (principal); I48.91 Unspecified atrial fibrillation; Z90.49 Acquired absence of other specified parts of digestive tract; Z98.890 Other specified postprocedural states; Z79.891 Long term (current) use of opiate analgesic; Z79.899 Other long term (current) drug therapy; Z86.73 Personal history of transient ischemic attack (TIA), and cerebral infarction without residual deficits; Z88.0 Allergy status to penicillin

== ENCOUNTER → 2021-06-26 | Outpatient (CLI) | payer OTHER, BC ==
[~2021-06-26] VITALS: Ht 180.3 cm; Wt 74.8 kg
[~2021-06-26] MED LIST changes: +MIRALAX119 GM PO; +MIRALAX17 G1 PO; +VITAMIN B-121000 MC2 PO
[2021-06-26 09:02] VITALS: BP 130/75
--- NOTE | 2021-06-26 09:18 | NUR ---
Pain Clinic Assessment: 1. History of Osteoarthritis: HIPS History of Rheumatoid Arthritis: DENIES 2. Height: 5 ft. 11 in. 180.3 cm. Weight: 165.0 lb. oz. 74.844 kg. Patient's BMI: 23.0 3. Vital Signs: BP: 130/75 Pulse: 78 Resp: 16 Temp: 02 Sat: 99 ECG Mon: 4. Pain Intensity: 2-5 5. Fall Risk: Dizziness: N Needs help standing or walking: N Fallen in the last 3 months: N Fall risk comments: 6. Patient on Blood Thinner: Clopidogrel Bisulf(Plavix 7. History of Hypertension: Y 8. Opioid Therapy greater than 6 weeks: Y Opiate Contract Signed: 05/10/17 9. Risk Assessment Tool Provided: LOW RISK 0 10. Functional Assessment Tool: 11. Recreational Drug Use: Never Drug Type: Tobacco Use: Former Smoker Tobacco Type: Amount or Packs/day: How Many Years: Alcohol Use: Yes Frequency: Quant:
== END ==
LOC: PAIN 08:14
PROVIDERS: ATTEND Clinical Nurse Specialist Adult Health
DX: M47.26 Other spondylosis with radiculopathy, lumbar region (principal); M51.16 Intervertebral disc disorders with radiculopathy, lumbar region; G89.29 Other chronic pain; Z87.891 Personal history of nicotine dependence; Z88.0 Allergy status to penicillin; Z79.899 Other long term (current) drug therapy